=== PATIENT | female | born 1955 | race Caucasian/White ===

== ENCOUNTER 2025-06-11 15:44 | Outpatient (OUT) | payer MEDICARE, MEDICAID, SELFPAY ==
--- OUTSIDE RECORDS SUMMARY | 2025-05-29 11:00 | XMS_ITS | Encounter Summary ---
Author Organization [facility] Address [address] [place] [id number] Care Team Providers Care Skein Yarn Dyer Name Role Phone Malgorzata Sanchez MD Primary Care Provider + [phone] Source Comments In the event this information is protected by the Federal Confidentiality of Alcohol and Drug AbusePatient Records regulations: The Federal rules restrict any use of the information to criminally investigate or prosecute any alcohol or drug abuse patient.[facility] Reason for Referral * Outpatient Procedure (Routine) - New Request Specialty Diagnoses / Procedures Referred By Contac t Referred To Contact [facility] [place] Diagnoses Diffuse large 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 (HCC) Procedures ECHO ECHO TTHRC R-T 2D W/WOM-MODE COMPL SPEC&COLR D Jonel Vaughan MD [address] [place] [address] [place] [address] Phone: tel: fax: [facility] [address] [address] Referral ID Status Reason Start Date Expiration Date Visits Requested Visits Authorized [id number] New Request Auto-Generat ed Referral 05/29/2025 05/29/2026 1 1 Reason for Visit * Reason Comments B cell lymphoma New patient consult Encounter Details Date Type Department Care Team (Latest Contact Info) Description 05/29/2025 11:00 AM EDT Visit (SP) Office Hematology/Oncology [address] [place] [address] Jonel Vaughan MD [address] [facility] [place] [place] [address] Diffuse large 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 (HCC) (Primary Dx) Social History Tobacco Use Types Packs/Day Years Used Date Smoking Tobacco: Former Cigarettes AUDIT-C Answer Date Recorded Frequency of Alcohol Consumption Not on file 05/27/2025 Q2: How many drinks containi ng alcohol do you have on a typical day when you are drinking? Patient does not drink Frequency of Binge Drinking Not on file 08/2024 Area Deprivation Index Answer Date Pedro rded National Score (1-100), lower number is lower ri sk 47 05/29/2025 State Score (1-10), lower number is lower risk 2 05/29/2025 Data from: https://www.neighborhoodatlas.medicine.[place].edu/. Last address used for calculation [address] 05/29/2025 Comments Unknown Sex and Gender Information Value Date Recorded Sex Assigned at Not on file Legal Sex Female 10:47 PM EDT Gender Identity Not on file Sexual Orientation Not on file documented as of this encounter Last Filed Vital Signs Vital Sign Reading Time Taken Comments Blood Pressure 143/88 05/29/2025 10:53 AM EDT Pulse 81 05/29/2025 10:53 AM EDT Temperature 36.6 C (97.8 F) 05/29/2025 10:53 AM EDT Respiratory Rate 16 05/29/2025 10:53 AM EDT Oxygen Saturation 97% 05/29/2025 10:53 AM EDT Inhaled Oxygen Concentration - - Weight 67.1 kg (148 lb) 05/29/2025 10:53 AM EDT Height 152.4 cm (5') 05/29/2025 10:53 AM EDT per patient Body Mass Index 28.9 05/29/2025 10:53 AM EDT documented in this encounter Patient Instructions * Patient Instructions* Jonel Vaughan MD - 05/29/2025 11:10 AM EDT Ordered port placement and 2d echo Chemo teach for [facility] Schedule chemo in 2 weeks F/u in 2 weeks documented in this encounter Progress Notes * Jonel Vaughan MD - 05/29/2025 11:00 AM EDT PATIENT NAME: Monica Clay CLINIC NO.: [id number] ATTENDING PHYSICIAN: Jonel Vaughan MD DATE OF SERVICE: May 29, [address] Malgorzata Sanchez MD ([facility]) [address] [place] [phone] thank you for referring Monica Clay for an opinion regarding Lympoma . CHIEF COMPLAINT: Lymphoma HPI: Monica Clay is a 70 year old year old female with no sig PMH. CT neck (04/22/25)- Multiple left neck cystic nodules versus cystic degeneration of lymph nodes. Findings may be secondary to both benign and malignant etiologies. Clinical correlation advised. PET scan (05/08/25)- Multiple FDG avid lymph nodes involving the level 2 and level 3 regions of the left neck. Per technologist sheet, this area has been biopsied. Correlation with pathology report is suggested. Mild activity involving the tonsillar region right greater than left. Direct visualization is suggested given the lymph node findings. No abnormal activity is seen within the chest, abdomen or pelvis. Normal laryngoscopy on 05/05/25. Excisional biopsy was done on 05/14/25. C/o pain in the neck. No heart problems. Quit smoking. No alcohol. Lives with mother. Current Outpatient Medications Medication Sig amoxicillin-clavulanate potassium (AUGMENTIN) 875-125 mg per tablet take 1 tablet (875 mg) by mouthin the morning and 1 tablet (875 mg) before bedtime. do all this for 10 days. diphenhydrAMINE (BENADRYL) 25 mg capsule Take 25 mg by mouth every 6 hours as needed. famotidine (PEPCID) 20 mg tablet Take 20 mg by mouth. glucosamine canchola 2KCl-chondroit 750-600 mg tab Take 1 tablet by mouth. HYDROcodone-acetaminophen (NORCO) 5-325 mg per tablet Take 1 tablet by mouth every 6 hours as needed. latanoprost (XALATAN) 0.005 % ophthalmic solution INSTILL 1 DROP IN THE RIGHT EYE EVERY EVENING AT BEDTIME discard 42 days after opening No current facility-administered medications for this visit. ALLERGIES Not on File PAST MEDICAL HISTORY Diagnosis Date Neck mass No past surgical history on file. No family history on file. SOCIAL HISTORY[1] REVIEW OF SYSTEMS GENERAL: No weight loss, malaise or fevers. No night sweats. HEENT: Negative for headaches, No changes in hearing or vision, no nose bleeds or other nasal problems. RESPIRATORY: Negative for cough, wheezing and shortness of breath CARDIOVASCULAR: Negative for chest pain, leg swelling and palpitations GI: Negative for abdominal discomfort, blood in stools or black stools and change in bowel habits : Negative for dysuria, frequency and incontinence MUSCULOSKELETAL: Negative for joint pain or swelling, back pain, and muscle pain. SKIN: Negative for lesions, rash, and itching. HEMATOLOGY/LYMPHOLOGY Negative for prolonged bleeding, bruising easily, and swollen nodes. NEURO: Negative for numbness or tingling of hands/feet. No weakness. PHYSICAL EXAMINATION: There were no vitals taken for this visit. There were no vitals taken for this visit. No data found for this vital: Wt General appearance:ECOG PERFORMANCE STATUS: 0- Fully active, able to carry on all pre-disease performance w/o restriction. Patient in NAD. Skin: Skin color, texture, turgor normal. No rashes or lesions. Eyes: Anicteric sclera. Pupils are equally round and reactive to light. Extraocular movements are intact. Breast: No palpable breast masses. No nipple change or discharge. Lymph Nodes: Left cervical lymphadenopathy palpable. Oropharynx: Lips, mucosa, and tongue normal. Back: No pain to percussion. Negative SLR test Lungs clear to auscultation, No wheezing or rhonchi Heart: RRR without murmur, gallop, or rubs. Abdomen soft, non-tender. No masses, organomegaly Extremities: No deformities. No edema Neuro: Gait and speech normal. Reflexes normal and symmetric. Muscular strength intact. Sensation grossly intact. Rectal: Deferred : Deferred LABS: No results found for: GLUC , K , NA , CHLOR , CO2 , CREAT , BUN , ANION , CA , TPROT , ALB , TBILI , ALKPHOS , AST , ALT No results found for: WBC , RBC , HB , HCT , MCV , MCH , MCHC , RDWCV , PLT , MPV , NEUT , ABSNEUT , LYMPHP , ABSLYMPH , MONOP , ABSMONO , EOSINP , ABSEOSIN , BASOP , ABSBASO PATH: FINAL DIAGNOSIS A. Outside slides Left jugular lymph node, level 2, left neck mass levels 2A and 2B, excisional biopsies (submitted parts A through C): -Involvement by HY42-xolubdds aggressive B-cell lymphoma, pending additional testing, see comment. Thank you for sending this case in consultation. Flow cytometry was also performed on the specimen (please see [id number] ), which demonstated an abnormal CD10 positive B-cell population negative forsurface light chain. 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 The lymphoprolifeartive process focally shows a more nodular pattern suggestive of a potential background of follicular lymphoma, although this is limited for characterization. FISH testing has been requested to further characterize these findings and will be reported as an addendum. Addendum Aggressive B-Cell Neoplasm Biomarker Template 5th Edition WHO/2021 ICC Diagnosis: Diffuse large B-cell lymphoma, NOS Biomarker Results: Cell of origin (Raimundo wiping cloth cutter): Germinal center MYC expression (% tumor cells by IHC): less than 40% BCL2 expression (% tumor cells by IHC): Negative Ki67 expression (% tumor cells by IHC): >70% Result Reference Range BCL6 Rearrangement 2% (0-9%) MYC Rearrangement 4% (0-11%) t(8;14)(q24.21;q32.33) IGH::MYC 0% (0-7%) BCL2 Rearrangement 1% (0-5%) IMAGING: ASSESSMENT AND PLAN: Monica Clay is a 70 year old year old female referred to us fro DLBCL, germinal center type. PLAN: 1. Diffuse large 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 (HCC) - ICD9: 202.81, ICD10: C83.31 - Underwent left cervical lymph node excisional biopsy on 05/14/2025. - Final path showed - Involvement by BA39-cvpenfhi aggressive B-cell lymphoma . DLBCL, germinal center type. Ki 67 >70%. Negative for c-MYC, BCL-2 and BCL-6 rearrangement. - PET scan (05/08/25)- Multiple FDG avid lymph nodes involving the level 2 and level 3 regions of the left neck Mild activity involving the tonsillar region right greater than left. Direct visualization is suggested given the lymph node findings. No abnormal activity is seen within the chest, abdomen or pelvis. - I explained to her in detail that she has non bulky stage I diffuse large B- cell lymphoma. - Will start her on R-CHOP chemotherapy x 3 cycles followed by ISRT. -Ordered port placement and 2D echo -Allopurinol prescription sent to the pharmacy - All her questions answered in detail. - F/u in [address] Malgorzata Sanchez MD ([facility]) [address] [place] [phone] thank you for allowing me to participate in [facility], if there are any questions or concerns please do not hesitate to contact me at the number below. I spent a total of 60 minutes on the date of the service which included preparing to see the patient, [id number] patient care, completing clinical documentation, obtaining and/or reviewing separately obtained history, performing a medically appropriate examination, counseling and educating the pat ient/family/caregiver, ordering medications, tests, or procedures, communicating with other HCPs (not separately reported), independently interpreting results (not separately reported), communicatingresults to the patient/family/caregiver, and care coordination (not separately reported). Jonel Vaughan MD. Hematology/Medical Oncology [facility] [phone] CC: [1] Social History Tobacco Use Smoking status: Former Types: Cigarettes documented in this encounter Plan of Treatment Upcoming Encounters Date Type Department Care Team (Latest Contact Info) Description 06/12/2025 8:30 AM EDT Infusion Center Hematology/Oncology [address] [place] [address] [place] [address] 2 week follow up with lab port draw chemotx RCHOP 06/12/2025 9:00 AM EDT Visit (SP) Office Hematology/Oncology [address] [facility] [place] [address] Jonel Vaughan MD [address] [facility] [place] [address] 2 week follow up with lab port draw chemotx [facility] 06/12/2025 9:30 AM EDT Infusion Center Hematology/Oncology [address] [facility] [place] [address] Humberto, Chair [address] [place] [address] 2 week follow up with lab port draw chemotx [facility] 06/12/2025 11:15 AM EDT Education Nutrition Therapy [address] [facility] [place] [address] Aimee Javier, RD [address] [place] [address] Diffuse large b-cell lymphoma, lymph nodes of head, face, and neck ( Scheduled Orders Name Type Priority Associated Diagnoses Orde r Schedule ECHO Cardiology Routine Diffuse large 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 (HCC) 1 Occurrences starting 05/29/2025 until 05/29/2026 IR PORTOCATH PLACEMENT Radiology Routine Diffuse large 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 (HCC) Ordered: 05/29/2025 COMPLETE BLOOD COUNT AND DIFFERENTIAL Lab Routine Diffuse large 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 (HCC) Expected: 06/12/2025 (Approximate), Expires: 09/11/2025 COMPREHENSIVE METABOLIC PANEL Lab Routine Diffuse large 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 (HCC) Expected: 06/12/2025 (Approximate), Expires: 09/11/2025 LACTATE DEHYDROGENASE Lab Routine Diffuse large 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 (HCC) Expected: 06/12/2025 (Approximate), Expires: 09/11/2025 URIC ACID Lab Routine Diffuse large 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 (HCC) Expected: 06/12/2025 (Approximate), Expires: 09/11/2025 HEP ACUTE PANEL/RNA Lab Routine Diffuse large 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 (HCC) Expected: 06/12/2025 (Approximate), Expires: 09/11/2025 documented as of this encounter Visit Diagnoses Diagnosis Diffuse large 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 (HCC)- Primary documented in this encounter Care Teams Skein Yarn Dyer Relationship Specialty Start Date End Date Malgorzata Sanchez MD [address] [place] [address] PCP - General Family Medicine 05/21/25 documented as of this encounter
--- OUTSIDE RECORDS SUMMARY | 2025-06-01 11:00 | XMS_ITS | Encounter Summary ---
Author Organization [facility] Address [address] [place] [address] Care Team Providers Care Theology Teacher Name Role Phone Malgorzata Sanchez MD Primary Care Provider + [phone] Kailyn Hinojosa RN Unavailable [phone] Jonel Vaughan MD Unavailable [phone] Kimmy AdamsC Unavailable [phone] Mariah Lopez CREDIT REVIEW ANALYST.RENDERER Unavailable [phone] Bronwyn Larios CREDIT REVIEW ANALYST.RENDERER Unavailable [phone] Source Comments In the event this information is protected by the Federal Confidentiality of Alcohol and Drug AbusePatient Records regulations: The Federal rules restrict any use of the information to criminally investigate or prosecute any alcohol or drug abuse patient.[facility] Reason for Visit * Reason Comments Opened In Error Encounter Details Date Type Department Care Team (Late st Contact Info) Description 06/01/2025 11:00 AM EDT Nurse Visit Hematology/Oncology [address] [place] [address] [place] [address] Kailyn Hinojosa, RN [address] [place] [address] [place] [address] Diffuse large b-cell lymphoma, lymph nodes of head, face, and neck (HCC) (Primary Dx) Social History Tobacco [...] is lower risk 2 05/29/2025 Data from: https://www.neighborhoodatlas.medicine.[facility].edu/. Last address used for calculation [address] 05/29/2025 Comments Unknown Sex and Gender Information Value Date Recorded Sex Assigned at Not on file Legal Sex Female 10:47 PM EDT Gender Identity Not on file Sexual Orientation Not on file documented as of this encounter Progress Notes * Kailyn Hinojosa RN - 06/03/2025 11:48 AM EDT Opened in error. Kailyn Hinojosa RN documented in this encounter Plan of Treatment Upcoming Encounters Date Type Department Care Team (Latest Contact Info) Description 06/12/2025 8:30 AM EDT Infusion Center Hematology/[place] [address] 2 week follow up with lab port draw chemotx [facility] 06/12/2025 9:00 AM EDT Visit (SP) Office Hematology/[place] [address] Jonel Vaughan MD [facility] [place] [address] 2 week follow up with lab port draw chemotx [facility] 06/12/2025 9:30 AM EDT Infusion Center Hematology/[place]cology [place] [address] Humberto, Chair [address] [place] [address] 2 week follow up with lab port draw chemotx [facility] 06/12/2025 11:15 AM EDT Education Nutrition Therapy [address] [place] [address] Aimee Javier, RD [address] [facility] [place] [address] Diffuse large b-cell lymphoma, lymph nodes of head, face, and neck ( documented as of this encounter Visit Diagnoses Diagnosis Diffuse large b-cell lymphoma, lymph nodes of head, face, and neck (HCC)- Primary documented in this encounter Care Teams Theology Teacher Relationship Specialty Start Date End Date Malgorzata Sanchez MD [address] [place] [phone] PCP - General Family Medicine 05/21/25 Kailyn Hinojosa, RN [address] [place] [address] Specialty Nurse Charge Rn Hematology/Oncology 06/01/25 Jonel Vaughan MD [address] [place] [address] [place] [address] Physician Hematology/Oncology 06/01/25 Kimmy Adams, PA-C [address] [place] [address] [place] [address] Physician Lumber Stacker Operator Hematology/Oncology 06/01/25 Mariah Lopez APRN.RENDERER [address] [place] [address] [place] [address] Nurse Practitioner Hematology/Oncology 06/01/25 Bronwyn Larios APRN.RENDERER [address] [place] [address] [place] [address] Nurse Practitioner Hematology/Oncology 06/01/25 documented as of this encounter
--- OUTSIDE RECORDS SUMMARY | 2025-06-11 15:51 | XMS_ITS | Encounter Summary ---
Author Organization [facility] Address [address] [place] [address] Care Team Providers Care Noc Technician Name Role Phone Malgorzata Sanchez MD Primary Care Provider Ava Dow NP Unavailable [phone] Malgorzata Sanchez MD Unavailable Ava Dow NP Unavailable Encounter Details Date Type Department Care Team (Late st Contact Info) Description 11/16/2023 Abstract [facility] [address] [place] [phone] Ava Dow NP [address] [place] [address] Social History Tobacco Use Types Packs/Day Years Used Date Smoking Tobacco: Former Cigarettes 2.5 35.2 0 11/25/1969 - 01/25/2005 Smokeless Tobacco: Never Comments:Forced to quit maikel use of health problems Alcohol Use Standard Drinks/Week Comments Not Currently 0 (1 standard drink = 0.6 oz pur e alcohol) Recoving alcoholic Humiliation, Afraid, Rape, and Kick questionnair e Answer Date Recorded Within the last year, have y ou been afraid of your partner or ex-partner? No 05/21/2023 Within the last year, have y ou been humiliated or emotionally abused in other ways by your partner or ex-partner? No Within the last year, have y ou been kicked, hit, slapped, or otherwise physically hurt by your partner or ex-partner? No 05/21/2023 Within the last year, have y ou been raped or forced to have any kind of sexual activity by your partner or ex-partner? No 05/21/2023 Social Connection and Isolation Panel Answer Date Recorded In a typical week, how many times do you talk on the phone with family, friends, or neighbors? Patient declined 05/21/2023 How often do you get togethe r with friends or relatives? Once a week 05/21/2023 How often do you attend muslim or tenriism serv ices? Never 05/21/2023 Do you belong to any clubs o r organizations such as muslim groups, unions, fraternal or athletic groups, or school groups? No 05/21/2023 How often do you attend meet ings of the clubs or organizations you belong to? Never 05/21/2023 Are you , , di vorced, , never , or living with a partner? Never 05/21/2023 AUDIT-C Answer Date Recorded Q1: How often do you have a drink containing alcohol? Never 05/21/2023 Q2: How many drinks containi ng alcohol do you have on a typical day when you are drinking? Patient does not drink Q3: How often do you have si x or more drinks on one occasion? Never 05/21/2023 Overall Financial Resource Strain (CARDIA) Answe r Date Recorded How hard is it for you to pa y for the very basics like food, housing, medical care, and heating? Hard 05/21/2023 PHQ-2 Answer Date Recorded Patient Health Questionnaire-2 Score 2 11/15/2023 [facility] - Occupational Stress Questionnaire Answer Date Recorded Do you feel stress - tense, restless, nervous, or anxious, or unable to sleep at night because your mind is troubled all the time - these days? Rather much 05/21/2023 Exercise Vital Sign Answer Date Recorde d On average, how many days pe r week do you engage in moderate to strenuous exercise (like a brisk walk)? 7 days 05/21/2023 On average, how many minutes do you engage in exercise at this level? 70 min 05/21/2023 Hunger Vital Sign Answer Date Recorded Within the past 12 months, y ou worried that your food would run out before you got the money to buy more. Often true Within the past 12 months, t he food you bought just didn't last and you didn't have money to get more. Sometimes true PRAPARE - Transportation Answer Date Re corded In the past 12 months, has l ack of transportation kept you from medical appointments or from getting medications? Yes 04/28 In the past 12 months, has l ack of transportation kept you from meetings, work, or from getting things needed for daily living? No 05/21/2023 Housing Stability Vital Sign Answer Mata e Recorded In the last 12 months, was t here a time when you were not able to pay the mortgage or rent on time? Patient refused 05/21/20 23 In the last 12 months, how many places have you lived? 1 05/21/2023 In the last 12 months, was t here a time when you did not have a steady place to sleep or slept in a prison (including now)? No 05/21/2023 Comments Unknown Sex and Gender Information Value Date Recorded Sex Assigned at Female 05/21/2023 6:07 PM EDT Legal Sex Female 4:08 PM EDT Gender Identity Female 05/21/2023 6:07 PM EDT Sexual Orientation Not on file documented as of this encounter Plan of Treatment Upcoming Encounters Date Type Department Care Team (Late st Contact Info) Description 06/22/2025 1:45 PM EDT Office Visit [facility] [address] [place] [address] Kirill Montes De Oca, DO [address] [place] [address] documented as of this encounter Visit Diagnoses Not on filedocumented in this encounter Care Teams Noc Technician Relationship Specialty Start Date End Date Malgorzata Sanchez MD [address] [place] [address] PCP - General Family Medicine 05/21/23 Malgorzata Sanchez MD [address] [place] [address] PCP - Jerome OJNES 08/27/23 11/24/24 Ava Dow NP [address] [place] [address] PCP - Jerome JONES 11/25/24 Ava Dow NP [address] [place], [place] [phone] Nurse Practitioner Family Medicine 05/21/23 documented as of this encounter
--- OUTSIDE RECORDS SUMMARY | 2025-06-11 15:51 | XMS_ITS | Encounter Summary ---
Author Organization [facility] Address [address] [place] [id number] Care Team Providers Care Environmental Lead Name Role Phone Malgorzata Sanchez MD Primary Care Provider + [phone] Source Comments In the event this information is protected by the Federal Confidentiality of Alcohol and Drug AbusePatient Records regulations: The Federal rules restrict any use of the information to criminally investigate or prosecute any alcohol or drug abuse patient.[facility] Encounter Details Date Type Department Care Team (Late st Contact Info) Description 05/29/2025 Orders Only Hematology/Oncology [address] [place] [address] [place] [address] Jonel Vaughan MD [address] [place] [address] Social History Tobacco Use Types Packs/Day Years [...] is lower risk 2 05/29/2025 Data from: https://www.neighborhoodatlas.medicine.[facility].edu/. Last address used for calculation [address] [...] 06/12/2025 8:30 AM EDT Infusion Center Hematology/Oncology [address] [place] [address] 2 week follow up with lab port draw chemotx [facility] 06/12/2025 9:00 AM EDT Visit (SP) Office Hematology/Oncology [address] [facility] [place] [address] Jonel Vaughan MD [address] [place] [address] 2 week follow up with lab port draw chemotx [facility] 06/12/2025 9:30 AM EDT [facility] Center Hematology/Oncology [address] [place] [address] Liguori, Chair [address] [place] [address] 2 week follow up with lab port draw chemotx [facility] 06/12/2025 11:15 AM EDT Education Nutrition Therapy [address] [place] [address] Aimee Javier, RD [address] [address] Diffuse large b-cell lymphoma, lymph nodes of head, face, and neck ( documented as of this encounter Visit Diagnoses Not on filedocumented in this encounter Care Teams Environmental Lead Relationship Specialty Start Date End Date Malgorzata Sanchez MD [address] [place] [id number] PCP - General Family Medicine 05/21/25 documented as of this encounter
--- OUTSIDE RECORDS SUMMARY | 2025-06-11 15:51 | XMS_ITS | Encounter Summary ---
Author Organization [facility] Address [address] [place], [place] [id number] Care Team Providers Care Legal Investigator Name Role Phone Malgorzata Sanchez MD Primary Care Provider + [phone] Source Comments In the event this information is protected by the Federal Confidentiality of Alcohol and Drug AbusePatient Records regulations: The Federal rules restrict any use of the information to criminally investigate or prosecute any alcohol or drug abuse patient.[facility] Reason for Visit * Reason Comments Care Coordination Medication Question Encounter Details Date Type Department Care Team (Late st Contact Info) Description 05/29/2025 Telephone Hematology/Oncology [address] [place] [address] Iliana Maynard, FREDY [address] [place] [address] [place] [address] Care Coordination (Medication Question) Social History Tobacco Use Types Packs/Day Years [...] is lower risk 2 05/29/2025 Data from: https://www.neighborhoodatlas.medicine.[facility]/. Last address used for calculation [address] 05/29/2025 Comments Unknown Sex and Gender Information Value Date Recorded Sex Assigned at Not on file Legal Sex Female 10:47 PM EDT Gender Identity Not on file Sexual Orientation Not on file documented as of this encounter Miscellaneous Notes * Telephone Encounter - Iliana Maynard RN - 05/29/2025 4:22 PM EDT Clarified w/ Dr Vaughan - pt can start next Sunday, 06/05. Pt notified of the above and verbalizes understanding. Iliana Maynard RN * Telephone Encounter - Jonel Vaughan MD - 05/29/2025 4:19 PM EDT I told her to start from next week. Thank you * Telephone Encounter - Iliana Maynard RN - 05/29/2025 4:07 PM EDT Pt to start [facility] on 06/12. When should she begin her Allopurinol? Iliana Maynard RN documented in this encounter Plan of Treatment Upcoming Encounters Date Type Department Care Team (Latest Contact Info) Description 06/12/2025 8:30 AM EDT Infusion Center Hematology/Oncology [address] [place], [place] [address] [address] 2 week follow up with lab port draw chemotx [facility] 06/12/2025 9:00 AM EDT Visit (SP) Office Hematology/Oncology [facility] [place] [address] Jonel Vaughan MD [address] [place] [address] 2 week follow up with lab port draw chemotx [facility] 06/12/2025 9:30 AM EDT Infusion Center Hematology/Oncology [address] [place] [address] Humberto, Chair [address] [place] [address] [place] [address] 2 week follow up with lab port draw chemotx [facility] 06/12/2025 11:15 AM EDT Education Nutrition Therapy [address] [place] [address] [place] [address] Aimee Javier, DAVID [address] [facility] [place] [address] Diffuse large b-cell lymphoma, lymph nodes of head, face, and neck ( documented as of this encounter Visit Diagnoses Not on filedocumented in this encounter Care Teams Legal Investigator Relationship Specialty Start Date End Date Malgorzata Sanchez MD [address] [place] [phone] PCP - General Family Medicine 05/21/25 documented as of this encounter
--- OUTSIDE RECORDS SUMMARY | 2025-06-11 15:51 | XMS_ITS | Clinical Summary ---
Author Organization [facility] Address [address] [place] [address] Care Team Providers Care Mop Machine Operator Name Role Phone Malgorzata Sanchez MD Primary Care Provider [phone] Kailyn Hinojosa RN Unavailable [phone] Jonel Vaughan MD Unavailable [phone] Kimmy Adams PA-C Unavailable [phone] Mariah Lopez COVERED BUTTON MAKER.SOCIAL SERVICES ANALYST Unavailable [phone] Bronwyn Larios COVERED BUTTON MAKER.SOCIAL SERVICES ANALYST Unavailable [phone] Allergies No known active allergies Medications diphenhydrAMIN E (BENADRYL) 25 mg capsule Take 25 mg by mouth every 6 hours as needed. Active famotidine (PEPCID) 20 mg tabletIndicati ons:heartburn Take 20 mg by mouth once daily as needed. Active glucosamine canchola 2KCl-chondroit 750-600 mg tab Take 1 tablet by mouth. 5 Active latanoprost (XALATAN) 0.005 % ophthalmic solution INSTILL 1 DROP IN THE RIGHT EYE EVERY EVENING AT BEDTIME discard 42 days after opening 5 Active calcium carbonate/luis antonio min D2 (CALCIUM + VITAMIN D ORAL) Take 1 dose by mouth once daily as needed. Active allopurinol (ZYLOPRIM) 300 mg tablet Take 1 tablet by mouth once daily. 30 tablet 5 06/28/20 25 Active prochlorperazi ne (COMPAZINE) 10 mg tablet Take 1 tablet by mouth every 6 hours as needed. 100 tablet 2 06/01/2025 12:01 PM EDT Active ondansetron (ZOFRAN) 8 mg tablet Take 1 tablet by mouth every 8 hours as needed for nausea/vomitin g. 90 tablet 2 06/01/2025 12:01 PM EDT 5 Active acyclovir (ZOVIRAX) 400 mg tabletIndicati ons:Diffuse large b-cell lymphoma, lymph nodes of head, face, and neck (HCC) Take 1 tablet by mouth two times a day. Take throughout treatment and for 6 months after completion. 60 tablet 11 06/01/2025 12:01 PM EDT 5 Active predniSONE (DELTASONE) 50 mgIndications: Diffuse large b-cell lymphoma, lymph nodes of head, face, and neck (HCC) Take 2 tablets by mouth daily with breakfast. Take for 5 days starting on the first day of each cycle (days 1-5). 10 tablet 5 06/01/2025 12:01 PM EDT Active magnesium, aluminum hydroxide (MYLANTA ORAL) Take 1 capsule by mouth once daily as needed (heart burn). Active vitamin B complex (B COMPLEX 1 ORAL) Take 1 capsule by mouth once daily. Active amoxicillin-cl avulanate potassium (AUGMENTIN) 875-125 mg per tablet take 1 tablet (875 mg) by mouth in the morning and 1 tablet (875 mg) before bedtime. do all this for 10 days. 5 05/29/20 25 Discontinu ed(Course of therapy completed) HYDROcodone-ac etaminophen (NORCO) 5-325 mg per tablet Take 1 tablet by mouth every 6 hours as needed. 5 05/29/20 25 Discontinu ed(Course of therapy completed) Active Problems Problem Noted Date Diagnosed Date Diffuse large b-cell lymphom a, lymph nodes of head, face, and neck 05/29/2025 Encounters Date Type Department Care Team Description 06/11/2025 Patient Msg Hematology/Oncolog y [address] [place] [address] Provider, Ccf Financial Navigator 06/11/2025 Telephone Hematology/Oncolog y [address] [facility] [place] [address] Kailyn Hinojosa RN Care Coordination (Clinical update) 06/08/2025 Telephone Hematology/Oncolog y [address] [place] [address] Ana Cristina Stevens RN Orders (Echo & Lab question) 06/05/2025 Telephone Hematology/Oncolog y [address] [place] [address] Kailyn Hinojosa RN Care Coordination (echo) 06/05/2025 Telephone Hematology/Oncolog y [address] [place] [address] Kailyn Hinojosa RN Care Coordination (Port question) 06/03/2025 Telephone Hematology/Oncolog y [address] [place] [address] Kailyn Hinojosa RN Care Coordination (question) 06/01/2025 11:00 AM EDT Nurse Visit Hematology/Oncolog y [address] [place] [address] Kailyn Hinojosa RN Diffuse large b-cell lymphoma, lymph nodes of head, face, and neck (HCC) (Primary Dx) 06/01/2025 Telephone Hematology/Oncolog y [address] [facility] [address] Kailyn Hinojosa RN Care Coordination (appointments); Future Appointment 06/01/2025 Education Hematology/Oncolog y [address] [facility] [address] Kailyn Hinojosa, FREDY First Time Treatment Education 06/01/2025 Telephone Hematology/Oncolog y [address] [place] [address] Kailyn Hinojosa RN Care Coordination (Treatment prep) 06/01/2025 Orders Only Hematology/Oncolog y [address] [place] [address] Jonel Vaughan MD 05/30/2025 Travel 05/29/2025 11:00 AM EDT Visit (SP) Office Hematology/Oncolog y [address] [place] [address] Jonel Vaughan MD Diffuse large 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 (HCC) (Primary Dx) 05/29/2025 Telephone Hematology/Oncolog y [address] [facility] [address] Iliana Maynard, RN Care Coordination (Medication Question) 05/29/2025 Orders Only Hematology/Oncolog y [address] [facility] [address] Jonel Vaughan MD 05/29/2025 Telephone Hematology/Oncolog y [address] [place] [address] Jonel Vaughan MD 05/29/2025 Telephone Cancer Appts [address] [place] [address] Jonel Vaughan MD Future Appointment 05/29/2025 Travel 05/27/2025 Abstract Hematology/Oncolog y [address] [facility] [address] [place], [place] [id number] Jonel Vaughan MD 05/14/2025 Lab Requisition [facility] [address] [place] [address] Kyaw Lara MD Person encountering health services to consult on behalf of another person 05/08/2025 Lab Requisition [facility] [address] [place] [address] Kirill Montes De Oca, DO Person encountering health services to consult on behalf of another person from Last 3 Months Immunizations Immunization Administration Dates Next Due COVID-19 vaccine, unspecified formulation 2024 influenza (HD-IIV3) vaccine, age 65+ yr, high dose, trivalent, PF (FLUZONE HIGH-DOSE) 09/29/2024 influenza (HD-IIV4) vaccine, age 65+ yr, high dose, quadrivalent, PF (FLUZONE HIGH-DOSE) 07/14/2023 influenza (IIV4) vaccine, ag e 6 mo - 64 yr, quadrivalent, PF (AFLURIA, FLUARIX, FLULAVAL, FLUZONE) 07/29/2022,09/08/2021 pneumococcal conjugate (PCV1 3) vaccine, 13 valent (PREVNAR 13) 10/15/2019 pneumococcal polysaccharide (PPV23) vaccine, 23 valent (PNEUMOVAX 23) 10/11/2021 zoster (ZVL) vaccine, live (ZOSTAVAX) 09/13/2016 Social History Tobacco Use Types Packs/Day Years Used Date Smoking Tobacco: Former Cigarettes Tobacco Cessation:Counseling Given: Not Answered AUDIT-C Answer Date Recorded Frequency of Alcohol [...] is lower risk 2 05/29/2025 Data from: https://www.neighborhoodatlas.medicine.[facility].edu/. Last address used for calculation [address] 05/29/2025 Comments Unknown Sex and Gender Information Value Date Recorded Sex Assigned at Not on file Legal Sex Female 10:47 PM EDT Gender Identity Not on file Sexual Orientation Not on file Last Filed Vital Signs Vital Sign Reading [...] Mass Index 28.9 05/29/2025 10:53 AM EDT Plan of Treatment Upcoming Encounters Date Type Department Care Team (Latest Contact Info) Description 06/12/2025 8:30 AM EDT Infusion Center Hematology/Oncology [address] [place] [address] [place] [address] 2 week [facility] lab [facility] 06/12/2025 9:00 AM EDT Visit (SP) Office Hematology/Oncology [address] [place] [address] Jonel Vaughan MD [address] [place] [address] 2 week follow up with lab port draw chemotx [facility] 06/12/2025 9:30 AM EDT Infusion Center Hematology/Oncology [address] [facility] [place] [address] Humberto, Chair 4 [address] [place] [address] 2 week follow up with lab port draw chemotx [facility] 06/12/2025 11:15 AM EDT Education Nutrition Therapy [address] [place] [address] Aimee Javier, BELINDA [address] [place] [place] [address] Diffuse large b-cell lymphoma, lymph nodes of head, face, and neck ( Health Maintenance Due Date Last Done Comments Anxiety Screening 1972 Depression Screening 1972 Hepatitis C Screening 1972 DTaP,Tdap,Td Vaccine (1 - Tdap) 1973 CT Colonography 1999 Colonoscopy 1999 Fecal Occult Blood 1999 Sigmoidoscopy 1999 Shingrix Vaccine (2 of 3) 11/08/2016 09/13/2016 Cologuard (FIT-DNA) 10/28/2022 10/29/2019 Colorectal Cancer Screening 10/28/2022 Advance Directive Discussion 08/27/2024 Covid-19 Vaccine (8 - 2024-2 6 season) 2025 09/12/2024, 07/14/2023, 07/29/2022, Additional history exists Influenza Vaccine (#1) 2025 , 07/14/2023, 07/29/2022, Additional history exists Mammogram Screening 09/05/2025 09/05/2024, 09/05/2024, 06/07/2023, Additional history exists Diabetes Screening 05/05/2028 05/05/2025, 0 04/21/2025, 10/12/2022, Additional history exists RSV Vaccine (1 - 1-dose 75+ series) 2029 Lipid Screening 04/21/2030 04/21/2025, 02/08/2021, 10/20/2019 Pneumococcal Vaccine: 50+ Completed 10/11/2021, Bone Density Screening Completed 09/05/2024, 2021 Procedures Procedure Name Priority Date/Time Associated Diagnosis Comments EXTERNAL PROCEDURE 06/05/2025 11 :43 AM EDT EXTERNAL LAB 05/22/2025 12:04 PM EDT EXTERNAL PROCEDURE 05/22/2025 12 :04 PM EDT EXTERNAL IMAGING 05/22/2025 12:0 4 PM EDT EXTERNAL LAB 05/22/2025 12:04 PM EDT EXTERNAL LAB 05/22/2025 12:04 PM EDT FISH FOR AGGRESSIVE B-CELL LYMPHOMA Routine 05/14/2025 9:19 AM EDT Person encountering health services to consult on behalf of another person SURGICAL PATHOLOGY REFERENCE LAB CONSULT Routine 05/14/2025 9:19 AM EDT Person encountering health services to consult on behalf of another person FLOW CYTOMETRY FOR LEUKEMIA/LYMPHOMA (FCLL) REFLEX Routine 05/08/2025 12:00 AM EDT Person encountering health services to consult on behalf of another person SURGICAL PATHOLOGY Routine 05/08/2025 12 :00 AM EDT Person encountering health services to consult on behalf of another person CT OUTSIDE CD DICOM IMPORT 05/08/2025 CT OUTSIDE CD DICOM IMPORT 04/30/2025 CT OUTSIDE CD DICOM IMPORT 04/22/2025 from Last 3 Months Results * EXTERNAL PROCEDURE (06/05/2025 11:43 AM EDT) us External Provider PA-C PROCEDURE Final Res ult * EXTERNAL LAB (05/22/2025 12:04 PM EDT) Only the most recent of3 resultswithin the time period is included. us External Provider PA-C LABORATORY Final Res ult * EXTERNAL PROCEDURE (05/22/2025 12:04 PM EDT) us External Provider PA-C PROCEDURE Final Res ult * EXTERNAL IMAGING (05/22/2025 12:04 PM EDT) Anatomical Region Laterality Modality Other us External Provider PA-C RADIOLOGY Final Res ult * SURGICAL PATHOLOGY REFERENCE LAB CONSULT (05/14/2025 9:19 AM EDT) Case Report Surgical Pathology Report Case: [id number] Authorizing Provider: Kyaw Lara MD Collected: 05/14/2025 09:19 AM Ordering Location: [facility] Received: 05/14/2025 09:17 AM [facility] Pathologist: Tila Oconnor MD, PhD Specimen: Block(s) and/or Slide(s), 48 SLIDES / 3 BLOCKS [id number];A2,B1FS,C1 05/21/2025 4:26 PM EDT [facility] FINAL DIAGNOSIS A. Outside slides Left jugular lymph node, level 2, left neck mass levels 2A and 2B, excisional biopsies (submitted parts A through C): -Involvement by [id number] aggressive B-cell lymphoma, pending additional testing, see comment. [facility] May 20, 2025 05/21/2025 4:26 PM EDT [facility] at 1153 EDT Diagnosis Comment Thank you for sending this case in consultation. Flow cytometry was also performed on the specimen (please see [id number] ), which demonstated an abnormal CD10 positive B-cell population negative for surface light chain. 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 The lymphoprolifeartive process focally shows a more nodular pattern suggestive of a potential background of follicular lymphoma, although this is limited for characterization. FISH testing has been requested to further characterize these findings and will be reported as an addendum. Please contact the Hematopathology Consult Service at [phone] for any questions or if additional follow-up information becomes available. 05/21/2025 4:26 PM EDT [facility] Microscopic Description Histologic sections demonstrate multiple fragments of soft tissue involved with incorporated lymph node and an atypical lymphoid proliferation. The atypical lymphoid cells are partially limited by fixation artifact for morphologic evaluation but include a mixture of larger more atypical forms with irregular nuclear contours and increased eosinophilic cytoplasm as well as small to medium lymphoid cells. Focal areas show a suggestion of a nodular pattern, or other areas of proliferation appear more diffuse. The background soft tissue is partially involved and shows extensive fibrosis. Submitted stains are reviewed. The atypical proliferation is negative for cytokeratin AE1/AE3, HMB45, Mart1/Melan-A and S100. Additional stains are performed to [facility] to further clarify the morphologic findings. A subset of stains are performed on multiple blocks to help further clarify the morphologic findings given the variation in pattern and confounding artifact. CD3 and CD5 show numerous interspersed T cells. CD20 highlights the atypical larger lymphoid forms. These larger forms show increased Ki-67 proliferation rate, at least 70% with some areas greater. They coexpress Bcl6, CD10, CD21, CD23, MEF2B, BOB1, Pax5. Pax5 shows some variation in nuclear size of the B-cells with interspersed smaller forms as well as the larger more atypical forms without definite pattern. Background areas of residual lymph node are positive for dendritic meshworks by CD21. Bcl6 shows a partially nodular pattern. CD30 shows scattered positivity, ~5%. The atypical cells are negative for cyclin D1, Bcl2 (124 and EP36 clones), ALK1, MUM1, cMyc (<40%) and by CISH for ANGELICA. An ultrasensitive CISH stain for kappa and lambda shows polytypic plasma cells, focal polytypic residual B-cell nodules and focal areas suggestive of lambda predominance. The majority of atypical cells do not show discernible light chain expression. p53 is variable, suggestive of a wild-type pattern. 05/21/2025 4:26 PM EDT [facility] Clinical History CONSULT REQUSTED 05/21/2025 4:26 PM EDT [facility] Performing Lab Diagnostic interpretation performed at: [facility], [address] [place] [address], [place] [address] CLIA# [id number] Closing Agent: Tommie Bob MD 05/21/2025 4:26 PM EDT [facility] Addendum Aggressive B-Cell Neoplasm Biomarker Template 5th Edition ICC Diagnosis: Diffuse large B-cell lymphoma, NOS Biomarker Results: Cell of origin (Raimundo flight operations specialist): Germinal center MYC expression (% tumor cells by IHC): less than 40% BCL2 expression (% tumor cells by IHC): Negative Ki67 expression (% tumor cells by IHC): >70% Result Reference Range BCL6 Rearrangement 2% (0-9%) MYC Rearrangement 4% (0-11%) t(8;14)(q24.21;q32.33 ) IGH::MYC 0% (0-7%) BCL2 Rearrangement 1% (0-5%) 05/21/2025 4:26 PM EDT [facility] Addendum electronically signed by Tila Oconnor MD, PhD on 05/21/2025 at 1626 EDT Disclaimer Laboratory Developed Test (LDT) Disclaimer: Performance characteristics of immunohistochemical, immunofluorescent, and chromogenic in-situ hybridization tests have been determined by the performing laboratory within the [facility] Department of Pathology and Laboratory Medicine ([facility], [facility], [facility], [facility], [facility], [facility], or [facility]) in a manner consistent with CLIA requirements. One or more of these tests may not have been cleared or approved by the FDA. The [facility] Department of Pathology and Laboratory Medicine is regulated under CLIA as qualified to perform high-complexity testing. These tests are used for clinical purposes. These should not be regarded as investigational or for research. Positive and negative controls stain appropriately. 05/21/2025 4:26 PM EDT [facility] Blocks or Slides PARAFFIN EMBEDDED TISSUE BLOCK SPECIMEN / Unknown 05/14/2025 9:19 AM EDT 05/14/2025 9:17 AM EDT Kyaw Lara MD SURGICAL PATHOLOGY Edited Result - Final [facility] [address] [facility] [address] [address], [place] * FISH FOR AGGRESSIVE B-CELL LYMPHOMA (05/14/2025 9:19 AM EDT) FISH for Aggressive B-cell Lymphoma FISH for Aggressive B-cell Lymphoma Tissue Laboratory Accession Number: [id number] Case: [id number] Block/Part ID: [id number] ([id number]; C1) Sample Type: FFPET Sample Description: LEFT NECK MASS, LEVEL 2A, EXCISIONAL BIOPSY Received Date: 2025-05-19 13:14:40 Number of nuclei scored: 200 per test RESULT: Result Reference Range BCL6 Rearrangement 2% (0-9%) MYC Rearrangement 4% (0-11%) t(8;14)(q24.21;q32 .33) IGH::MYC 0% (0-7%) BCL2 Rearrangement 1% (0-5%) INTERPRETATION: NEGATIVE for rearrangements involving the MYC, BCL2 and BCL6 genes. Chromosome analysis may be helpful in further evaluation, if clinically indicated. Clinical and pathologic correlation is recommended. There is an 11% gain (3 copies) of the MYC (8q24) gene region. There is a 14% gain (3 copies) of the IGH (14q32) gene region. There is a 16% gain (3-4 copies) of the BCL2 (18q21) gene region. Nomenclature: nuc claudine(BCL6x2)[161/20 0],(MYCx2,IGHx3)[2 7/200],(MYCx3)[2 1200],(BCL2x3~4)[ 31/200] METHODOLOGY: Fluorescence in situ hybridization analysis was performed using the following probes ([employer], [place], [place]): LSI MYC dual color, break-apart rearrangement probes; [employer] IGH/MYC/CEP8 tricolor, dual fusion probes; [employer] BCL2 dual color, break-apart rearrangement probes; and LSI BCL6 dual color, break-apart rearrangement probes. DISCLAIMER: This test was developed and its performance characteristics determined by [facility]'s Pathology and Laboratory Medicine Department. It has not been cleared or approved by the FDA. [facility]'s Pathology and Laboratory Medicine Department is regulated under CLIA as qualified to perform high-complexity testing. This test is used for clinical purposes. It should not be regarded as investigational or for research. Test performed at [facility], [facility] [place] [address]. CLIA Number: [id number] Interpretation performed by Aimee Cazares MD, PhD 05/21/2025 3:57 PM EDT [facility] Blocks or Slides PARAFFIN EMBEDDED TISSUE BLOCK SPECIMEN / Unknown 05/14/2025 9:19 AM EDT 05/18/2025 7:34 PM EDT Kyaw Lara MD LABORATORY Final Result [facility] [place] [address], * FLOW CYTOMETRY FOR LEUKEMIA/LYMPHOMA (FCLL) REFLEX (05/08/2025 12:00 AM EDT) Interpretation The findings demonstrate a subset of B cells that express CD10 and are negative for surface light chain. The findings are suspicious for a B-cell lymphoma, but correlation with the clinical and histopathologic findings is suggested for further classification. 05/14/2025 4:19 PM EDT [facility] at 1619 EDT Results Specimen type: Left neck lymph node. Viability: 85% Lymphocyte gate: 74% of total events A limited flow cytometric analysis was performed on the left neck lymph node biopsy due to low cell yield. Antibodies to CD5, CD10, CD19, CD20, CD23, CD45, CD123, CD200, and kappa and lambda light immunoglobulin light chains were used. This shows that 74% of total events have the CD45 and side scatter properties of lymphocytes. In the lymphocyte gate, the lymphocytes are composed of presumed T cells (65%) and B cells (32%). A subset of the B cells expresses CD10, CD19, CD20, CD23, and CD45. This population is negative for CD5, CD123, CD200, and surface immunoglobulin light chain. MMN/MT 05/11/25 05/14/2025 4:19 PM EDT [facility] Gross Description A. Lymph Node, Biopsy RECEIVED 1 PIECE TISSUE MEASURING 0.2 CM BY 0.2 CM BY 0.2 CM 05/14/2025 4:19 PM EDT [facility] Diagnosis Comment This test was developed and its performance characteristics determined by [facility] [place] ([facility]). It has not been cleared or approved by the FDA. [facility] is regulated under CLIA as qualified to perform high-complexity testing. This test is used for clinical purposes. It should not be regarded as investigational or for research. 05/14/2025 4:19 PM EDT [facility] Performing Lab Diagnostic interpretation performed at [place] [address] CLIA# [id number] Closing Agent: Tommie Bbo M.D. 05/14/2025 4:19 PM EDT [facility] Tissue LYMPH NODE BIOPSY SPECIMEN / Unknown 05/08/2025 05/08/2025 11:27 PM EDT us Kirill Montes De Oca DO SURGICAL PATHOLOGY Final Re sult [facility] [address] [place] [address], * SURGICAL PATHOLOGY (05/08/2025 12:00 AM EDT) Case Report Surgical Pathology Report Case: [id number] Authorizing Provider: Kirill Montes De Oca DO Collected: 05/08/2025 12:00 AM Ordering Location: [facility] Received: 05/08/2025 10:50 PM [facility] Pathologist: Madison Camarillo MD Specimen: Lymph Node, Biopsy, lt neck node ([id number]) 05/15/2025 9:56 AM EDT [facility] FINAL DIAGNOSIS This specimen was submitted for flow cytometry. Please see [id number] for the flow cytometry findings. Please refer to [id number] for the final diagnosis for the surgical pathology specimen. 05/15/2025 9:56 AM EDT [facility] at 0956 EDT Gross Description A. Lymph Node, Biopsy Received in RPMI for lymphoma protocol labeled lymph node, biopsy is a specimen consisting of 5 pieces of fibroadipose/lymph oid tissue measuring 1.7 x 1.4 x 0.2 cm in aggregate. The smallest fragment is submitted in RPMI for flow cytometry and remaining of the tissue is transferred to formalin for permanents in A1. Gross examination performed at [facility], [address] [place] [address] CLIA # [id number] 05/08/25 11:27 PM 05/15/2025 9:56 AM EDT [facility] Performing Lab Diagnostic interpretation performed at: [facility], [address] [place] [address] CLIA# [id number] Closing Agent: Tommie Bob MD 05/15/2025 9:56 AM EDT [facility] Disclaimer Laboratory Developed Test (LDT) Disclaimer: Performance characteristics of immunohistochemica l, immunofluorescent, and chromogenic in-situ hybridization tests have been determined by the performing laboratory within the [facility] Department of Pathology and Laboratory Medicine ([facility], [facility], [facility], [facility], [facility], [facility], or [facility]) in a manner consistent with CLIA requirements. One or more of these tests may not have been cleared or approved by the FDA. The [facility] Department of Pathology and Laboratory Medicine is regulated under CLIA as qualified to perform high-complexity testing. These tests are used for clinical purposes. These should not be regarded as investigational or for research. Positive and negative controls stain appropriately. 05/15/2025 9:56 AM EDT [facility] Tissue LYMPH NODE BIOPSY SPECIMEN / Unknown 05/08/2025 05/08/2025 10:50 PM EDT us Kirill Montes De Oca DO SURGICAL PATHOLOGY Final Re sult [facility] [address] [facility] [address] [place] [address], [place] * CT-PET tumor subq tx strat sb-mt IMPORT (05/08/2025) Anatomical Region Laterality Modality Other 05/08/2025 Narrative 05/27/2025 1:37 AM EDT Images were obtained outside of [facility] Procedure Note Provider, [facility] [place] - 05/27/2025 Images were obtained outside of [facility] Cc Provider RADIOLOGY Final Result * CT-CT LUNG SCREENING LOW DOSE IMPORT (04/30/2025) Anatomical Region Laterality Modality Other 04/30/2025 Narrative 05/27/2025 1:36 AM EDT Images were obtained outside of [facility] Procedure Note Provider, [facility] [place] - 05/27/2025 Images were obtained outside of [facility] Cc Provider RADIOLOGY Final Result * [place]-CT SOFT TISSUE NECK W IV CONTRAST IMPORT (04/22/2025) Anatomical Region Laterality Modality Other 04/22/2025 Narrative 05/27/2025 1:35 AM EDT Images were obtained outside of [facility] Procedure Note Provider, [facility] [place] - 05/27/2025 Images were obtained outside of [facility] Ccf Provider RADIOLOGY Final Result from Last 3 Months Insurance [employer] MEDIC[employer]ANT[place] Care Teams Mop Machine Operator Relationship Specialty Start Date End Date Malgorzata Sanchez MD [address] [place] [id number] PCP - General Family Medicine 05/21/25 Kailyn Hinojosa, RN [address] [place] [place] [address] Specialty Special Forces Warrant Officer Hematology/Oncology 06/01/25 Jonel Vaughan MD [address] [place] [address] Physician Hematology/Oncology 06/01/25 Kimmy Adams, PA-C [address] [place] [address] Physician Assembly Stock Supervisor Hematology/Oncology 06/01/25 Mariah Lopez APRN.SOCIAL SERVICES ANALYST [address] [place] [address] Nurse Practitioner Hematology/Oncology 06/01/25 Bronwyn Larios APRN.[facility] [address] [place] [address] [place] [address] Nurse Practitioner Hematology/Oncology 06/01/25
--- OUTSIDE RECORDS SUMMARY | 2025-06-11 15:51 | XMS_ITS | Encounter Summary ---
Author Organization [facility] Address [address] [place] [address] Care Team Providers Care Cane Loader Name Role Phone Malgorzata Sanchez MD Primary Care Provider + [phone] Kailyn Hinojosa RN Unavailable [phone] Jonel Vaughan MD Unavailable + [phone] Kimmy Adams PA-C Unavailable [phone] Mariah Lopez SECURITY SALES MANAGER.DE[employer] STUDENTS Unavailable +[phone] Bronwyn Larios SECURITY SALES MANAGER.[employer] Unavailable [phone] Source Comments In the event this information is protected by the Federal Confidentiality of Alcohol and Drug AbusePatient Records regulations: The Federal rules restrict any use of the information to criminally investigate or prosecute any alcohol or drug abuse patient.[facility] Reason for Visit * Reason Comments Future Appointment Encounter Details Date Type Department Care Team (Late st Contact Info) Description 05/29/2025 Telephone Cancer Appts [facility] [place] [address] Jonel Vaughan MD [facility] [place] [address] Future Appointment Social History Tobacco Use Types Packs/Day Years [...] is lower risk 2 05/29/2025 Data from: https://www.neighborhoodatlas.medicine.[facility].edu/. Last address used for calculation [address] 05/29/2025 Comments Unknown Sex and Gender Information Value Date Recorded Sex Assigned at Not on file Legal Sex Female 10:47 PM EDT Gender Identity Not on file Sexual Orientation Not on file documented as of this encounter Miscellaneous Notes * Telephone Encounter - Tonya Vázquez - 06/03/2025 3:10 PM EDT Called [facility] office spoke with Srinivasan. She states patient is scheduled for Port Placement with Dr Spangler on 06/04. Tonya Red * Telephone Encounter - Tonya Vázquez - 06/01/2025 2:12 PM EDT Called [facility] office spoke with Srinivasan. She states referral was placed at their office this morning. Their office will be calling patient MIRIAM to get scheduled for Port Placement. Tonya Red * Telephone Encounter - Ariella Vela - 05/29/2025 1:14 PM EDT Records faxed to [facility]. * Telephone Encounter - Debra Henry - 05/29/2025 11:29 AM EDT Please refer to [facility] for port placement. Hoping to start chemo on 06-12-25. Lanny, Please fax records Enrrique, Please follow up on this appt. Thank you documented in this encounter Plan of Treatment Upcoming Encounters Date Type Department Care Team (Latest Contact Info) Description 06/12/2025 8:30 AM EDT Infusion Center Hematology/Oncology [address] [place] [address] 2 week follow up with lab port draw chemotx [facility] 06/12/2025 9:00 AM EDT Visit (SP) Office Hematology/Oncology [address] [place] [address] Jonel Vaughan MD [address] [facility] [place] [address] 2 week follow up with lab port draw chemotx [facility] 06/12/2025 9:30 AM EDT Infusion Center Hematology/Oncology [address] [place] [address] Humberto, Chair [address] [place] [address] 2 week follow up with lab port draw chemotx [facility] 06/12/2025 11:15 AM EDT Education Nutrition Therapy [address] [address] [place], [place] [id number] Aimee Javier, BELINDA [address] [facility] [place] [address] Diffuse large b-cell lymphoma, lymph nodes of head, face, and neck ( documented as of this encounter Visit Diagnoses Not on filedocumented in this encounter Care Teams Cane Loader Relationship Specialty Start Date End Date Malgorzata Sanchez MD [address] [place] [address] PCP - General Family Medicine 05/21/25 Kailyn Hinojosa RN [address] [facility] [address] Specialty Livestock Ranch Hand Hematology/Oncology 06/01/25 Jonel Vaughan MD [address] [place] [address] [place] [address] Physician Hematology/Oncology 06/01/25 Kimmy Adams PAGilmerC [address] [place] [address] [place] [address] Physician Refurbish Technician Hematology/Oncology 06/01/25 Mariah Lopez APRN.[employer] [address] [place] [address] [place] [address] Nurse Practitioner Hematology/Oncology 06/01/25 Bronwyn Larios APRN.[employer] [address] [place] [address] [place] [address] Nurse Practitioner Hematology/Oncology 06/01/25 documented as of this encounter
--- OUTSIDE RECORDS SUMMARY | 2025-06-11 15:51 | XMS_ITS | Encounter Summary ---
Author Organization [facility] Address [address] [place] [address] Care Team Providers Care Mechanical Design Engineer Name Role Phone Malgorzata Sanchez MD Primary Care Provider + [phone] Kailyn Hinojosa RN Unavailable [phone] Jonel Vaughan MD Unavailable +- [phone] Kimmy Adams PA-C Unavailable [phone] Mariah Lopez PROGRAM DIRECTOR SCOUTING.BLAST SETTER Unavailable [phone] Bronwyn Larios PROGRAM DIRECTOR SCOUTING.BLAST SETTER Unavailable [phone] Source Comments In the event this information is protected by the Federal Confidentiality of Alcohol and Drug AbusePatient Records regulations: The Federal rules restrict any use of the information to criminally investigate or prosecute any alcohol or drug abuse patient.[facility] Encounter Details Date Type Department Care Team (Late st Contact Info) Description 05/08/2025 Lab Requisition [facility] [address] [place] [address] Kirill Montes De Oca, DO [address] [place] [address] Person encountering health services to consult on behalf of another person Social History Tobacco Use Types Packs/Day Years Used Date Smoking Tobacco: Never Assessed Comments Unknown Sex and Gender Information Value Date Recorded Sex Assigned at Not on file Legal Sex Female 10:47 PM EDT Gender Identity Not on file Sexual Orientation Not on file documented as of this encounter Plan of Treatment Upcoming Encounters Date Type Department Care Team (Latest Contact Info) Description 06/12/2025 8:30 AM EDT Infusion Center Hematology/Oncology [address] [place] [address] 2 week follow up with lab port draw chemotx [facility] 06/12/2025 9:00 AM EDT Visit (SP) Office Hematology/Oncology [address] [facility] [place] [address] Jonel Vaughan MD [address] [place] [address] 2 week follow up with lab port draw chemotx [facility] 06/12/2025 9:30 AM EDT Infusion Center Hematology/Oncology [address] [place] [address] Humberto, Chair [address] [place] [address] 2 week follow up with lab port draw chemotx [facility] 06/12/2025 11:15 AM EDT Education Nutrition Therapy [address] [facility] [place] [address] Aimee Javier, BELINDA [address] [place] [address] Diffuse large b-cell lymphoma, lymph nodes of head, face, and neck ( documented as of this encounter Procedures Procedure Name Priority Date/Time Associated Diagnosis Comments FLOW CYTOMETRY FOR LEUKEMIA/LYMPHOMA (FCLL) REFLEX Routine 05/08/2025 12:00 AM EDT Person encountering health services to consult on behalf of another person SURGICAL PATHOLOGY Routine 05/08/2025 12 :00 AM EDT Person encountering health services to consult on behalf of another person documented in this encounter Results * FLOW CYTOMETRY FOR LEUKEMIA/LYMPHOMA (FCLL) REFLEX (05/08/2025 12:00 AM EDT) Interpretation The findings demonstrate a subset of B cells that express CD10 and are negative for surface light chain. The findings are suspicious for a B-cell lymphoma, but correlation with the clinical and histopathologic findings is suggested for further classification. 05/14/2025 4:19 PM EDT [facility] at 1619 EDT Results Specimen [...] chain. MMN/MT 05/11/25 05/14/2025 4:19 PM EDT [facility] Gross Description A. Lymph Node, Biopsy RECEIVED 1 PIECE TISSUE MEASURING 0.2 CM BY 0.2 CM BY 0.2 CM 05/14/2025 4:19 PM EDT [facility] Diagnosis Comment This test was developed and its performance characteristics determined by [facility]'s [facility] [place] (-PLMI). It has not been cleared or approved by the FDA. RT-PLFL is regulated under CLIA as qualified to perform high-complexity testing. This test is used for clinical purposes. It should not be regarded as investigational or for research. 05/14/2025 4:19 PM EDT [facility] Performing Lab Diagnostic interpretation performed at [facility], [address] [place], [place] [id number] CLIA# [id number] Safety Clothing And Equipment Developer: Tommie Bob M.D. 05/14/2025 4:19 PM EDT [facility] Tissue LYMPH NODE BIOPSY SPECIMEN / Unknown 05/08/2025 05/08/2025 11:27 PM EDT us Kirill Montes De Oca DO SURGICAL PATHOLOGY Final Re sult [address] [place] [address], * SURGICAL PATHOLOGY (05/08/2025 12:00 AM EDT) Case Report Surgical Pathology Report Case: [id number] Authorizing Provider: Kirill Montes De Oca DO Collected: 05/08/2025 12:00 AM Ordering Location: [facility] Received: 05/08/2025 10:50 PM [facility] Pathologist: Madison Camarillo MD Specimen: Lymph Node, Biopsy, lt neck node ([id number]) 05/15/2025 9:56 AM EDT [facility] FINAL DIAGNOSIS This specimen was submitted for flow cytometry. Please see [id number] for the flow cytometry findings. Please refer to [id number] for the final diagnosis for the surgical pathology specimen. 05/15/2025 9:56 AM EDT [facility] at 0956 EDT Gross Description A. Lymph Node, Biopsy Received in [facility] for lymphoma protocol labeled lymph node, biopsy is a specimen consisting of 5 pieces of fibroadipose/lymph oid tissue measuring 1.7 x 1.4 x 0.2 cm in aggregate. The smallest fragment is submitted in RPMI for flow cytometry and remaining of the tissue is transferred to formalin for permanents in A1. Gross examination performed at [facility], [address] [place] [address] CLIA # [id number] [facility] 05/08/25 11:27 PM 05/15/2025 9:56 AM EDT [facility] Performing Lab Diagnostic interpretation performed at: [facility], [address] [facility] [place] [id number] CLIA# [id number] Safety Clothing And Equipment Developer: Tommie Bob MD 05/15/2025 9:56 AM EDT [facility] Disclaimer Laboratory Developed Test (LDT) Disclaimer: Performance characteristics of immunohistochemica l, immunofluorescent, and chromogenic in-situ hybridization tests have been determined by the performing laboratory within the [facility] Department of Pathology and Laboratory Medicine ([facility], [facility], [facility], [facility], [facility], [facility], [facility]1983, or [facility]) in a manner consistent with CLIA requirements. One or more of these tests may not have been cleared or approved by the FDA. The [facility] Department of Pathology and Laboratory Medicine is regulated under CLIA as qualified to perform high-complexity testing. These tests are used for clinical purposes. These should not be regarded as investigational or for research. Positive and negative controls stain appropriately. 05/15/2025 9:56 AM EDT [facility] Tissue LYMPH NODE BIOPSY SPECIMEN / Unknown 05/08/2025 05/08/2025 10:50 PM EDT us Kirill Montes De Oca DO SURGICAL PATHOLOGY Final Re sult [facility] [address] [place] [address], documented in this encounter Visit Diagnoses Diagnosis Person encountering health services to consult on behalf of another person Other person consulting on behalf of another person documented in this encounter Care Teams Mechanical Design Engineer Relationship Specialty Start Date End Date Malgorzata Sanchez MD [address] [place] [address] PCP - General Family Medicine 05/21/25 Kailyn Hinojosa, RN [address] [place] [address] Specialty Import Export Manager Hematology/Oncology 06/01/25 Jonel Vaughan MD [address] [place] [address] Physician Hematology/Oncology 06/01/25 Kimmy Adams PA-C [address] [place] [address] [place] [address] Physician Electrician Radio Hematology/Oncology 06/01/25 Mariah Lopez APRN.BLAST SETTER [address] [place] [address] [place] [address] Nurse Practitioner Hematology/Oncology 06/01/25 Bronwyn Larios APRN.BLAST SETTER [address] [place] [address] [place] [address] Nurse Practitioner Hematology/Oncology 06/01/25 documented as of this encounter
--- OUTSIDE RECORDS SUMMARY | 2025-06-11 15:51 | XMS_ITS | Encounter Summary ---
Author Organization [facility] Address [address] [place] [address] Care Team Providers Care Greige Goods Marker Name Role Phone Malgorztaa Sanchez MD Primary Care Provider + [phone] Source Comments In the event this information is protected by the Federal Confidentiality of Alcohol and Drug AbusePatient Records regulations: The Federal rules restrict any use of the information to criminally investigate or prosecute any alcohol or drug abuse patient.[facility] Encounter Details Date Type Department Care Team (Latest Contact Info) Description 05/29/2025 Travel Social History Tobacco Use Types Packs/Day Years Used Date Smoking Tobacco: Former Cigarettes AUDIT-C Answer Date Recorded Frequency of Alcohol Consumption Not on file 05/27/2025 Q2: How many drinks containi ng alcohol do you have on a typical day when you are drinking? Patient does not drink Frequency of Binge Drinking Not on file 08/2024 Area Deprivation Index Answer Date Epdro rded National Score (1-100), lower number is lower ri sk 47 05/29/2025 State Score (1-10), lower number is lower risk 2 05/29/2025 Data from: https://www.neighborhoodatlas.medicine.[facility].edu/. Last address used for calculation [address] 05/29/2025 Comments Unknown Sex and Gender Information Value Date Recorded Sex Assigned at Not on file Legal Sex Female 10:47 PM EDT Gender Identity Not on file Sexual Orientation Not on file documented as of this encounter Plan of Treatment Upcoming Encounters Date Type Department Care Team (Latest Contact Info) Description 06/12/2025 8:30 AM EDT Infusion Center Hematology/Oncology [address] [place] [address] 2 week follow up with lab port draw chemotx [facility] 06/12/2025 9:00 AM EDT Visit (SP) Office Hematology/Oncology [address] [place] [address] Jonel Vaughan MD [address] [place] [address] 2 week follow up with lab port draw chemotx [facility] 06/12/2025 9:30 AM EDT Infusion Center Hematology/Oncology [address] [place] [address] [place], Chair [address] [place] [address] 2 week follow up with lab port draw chemotx [facility] 06/12/2025 11:15 AM EDT Education Nutrition Therapy [address] [place] [address] Aimee Javier, RD [address] [place] [address] Diffuse large b-cell lymphoma, lymph nodes of head, face, and neck ( documented as of this encounter Visit Diagnoses Not on filedocumented in this encounter Care Teams Greige Goods Marker Relationship Specialty Start Date End Date Malgorzata Sanchez MD [address] [place] [address] PCP - General Family Medicine 05/21/25 documented as of this encounter
--- OUTSIDE RECORDS SUMMARY | 2025-06-11 15:51 | XMS_ITS | Encounter Summary ---
Author Organization [facility] Address [address] [place] [address] Care Team Providers Care Front Window Cashier Name Role Phone Malgorzata Sanchez MD Primary Care Provider + [phone] Kailyn Hinojosa RN Unavailable [phone] Jonel Vaughan MD Unavailable + [phone] Kimmy AdamsC Unavailable [phone] Mariah Lopez VALVE AND REGULATOR REPAIRER.MEDICAL EQUIPMENT REPAIRER Unavailable [phone] Bronwyn Larios VALVE AND REGULATOR REPAIRER.MEDICAL EQUIPMENT REPAIRER Unavailable [phone] Source Comments In the event this information is protected by the Federal Confidentiality of Alcohol and Drug AbusePatient Records regulations: The Federal rules restrict any use of the information to criminally investigate or prosecute any alcohol or drug abuse patient.[facility] Reason for Visit * Reason Comments Care Coordination Clinical update Encounter Details Date Type Department Care Team (Late st Contact Info) Description 06/11/2025 Telephone Hematology/Oncology [facility] [place] [address] Kailyn Hinojosa, RN [facility] [place] [address] Care Coordination (Clinical update) Social History Tobacco Use Types Packs/Day Years [...] is lower risk 2 05/29/2025 Data from: https://www.neighborhoodatlas.medicine.[facility].edu/. Last address used for calculation [address] 05/29/2025 Comments Unknown Sex and Gender Information Value Date Recorded Sex Assigned at Not on file Legal Sex Female 10:47 PM EDT Gender Identity Not on file Sexual Orientation Not on file documented as of this encounter Miscellaneous Notes * Telephone Encounter - Kailyn Hinojosa RN - 06/11/2025 12:33 PM EDT Pt notified Kailyn Hinojosa RN * Telephone Encounter - Jonel Vaughan MD - 06/11/2025 9:17 AM EDT OK. I will see her tmrw. Take OTC advil for now for pain control. Thank you * Telephone Encounter - Kailyn Hinojosa RN - 06/11/2025 9:08 AM EDT Call received from pt stating she has a bruise on her right hand that just started last night. Pt isn't sure if she bumped it and didn't realize it or what. Pt denies pain, swelling at the site. States there's a purple bruise and she wanted our office to be aware. Instructed pt to monitor for now. Pt states the swelling in the left side of her neck is getting bigger and becoming more painful. States it's putting a lot of pressure on her collar bone and the swelling is extending down below her collar bone now. Pt will be starting treatment tomorrow. Pt going for echo today at [facility]. Kailyn Hinojosa, RN documented in this encounter Plan of Treatment Upcoming Encounters Date Type Department Care Team (Latest Contact Info) Description 06/12/2025 8:30 AM EDT Infusion Center Hematology/Oncology [address] [place] [address] 2 week follow up with lab port draw chemotx [facility] 06/12/2025 9:00 AM EDT Visit (SP) Office Hematology/Oncology [address] [place] [address] Jonel Vaughan MD [address] [place] [address] 2 week follow up with lab port draw chemotx [facility] 06/12/2025 9:30 AM EDT Infusion Center Hematology/Oncology [address] [place] [address] [place], Chair [address] [place] [address] 2 week follow up with lab port draw chemotx [facility] 06/12/2025 11:15 AM EDT Education Nutrition Therapy [address] [facility] [place] [address] Aimee Javier, DAVID [address] [place] [address] Diffuse large b-cell lymphoma, lymph nodes of head, face, and neck ( documented as of this encounter Visit Diagnoses Not on filedocumented in this encounter Care Teams Front Window Cashier Relationship Specialty Start Date End Date Malgorzata Sanchez MD [address] [place] [address] PCP - General Family Medicine 05/21/25 Kailyn Hinojosa, RN [address] [place] [address] [place] [address] Specialty Prepress Stripper Hematology/Oncology 06/01/25 Jonel Vaughan MD [address] [place] [address] [place] [address] Physician Hematology/Oncology 06/01/25 Kimmy Adams PA-C [address] [place] [address] [place] [address] Physician Optometric Assistant Hematology/Oncology 06/01/25 Mariah Lopez APRN.MEDICAL EQUIPMENT REPAIRER [address] [place] [address] [place] [address] Nurse Practitioner Hematology/Oncology 06/01/25 Bronwyn Larios APRN.MEDICAL EQUIPMENT REPAIRER [address] [place] [address] [place] [address] Nurse Practitioner Hematology/Oncology 06/01/25 documented as of this encounter
--- OUTSIDE RECORDS SUMMARY | 2025-06-11 15:51 | XMS_ITS | Encounter Summary ---
Author Organization [facility] Address [address] [place] [address] Care Team Providers Care Automotive Sales Professional Name Role Phone Malgorzata Sanchez MD Primary Care Provider + [phone] Kailyn Hinojosa RN Unavailable [phone] Jonel Vaughan MD Unavailable +- [phone] Kimmy Adams PA-C Unavailable [phone] Mariah Lopez BRACELET AND BROOCH MAKER.CONTRACT PROJECT MANAGER Unavailable [phone] Bronwyn Larios BRACELET AND BROOCH MAKER.CONTRACT PROJECT MANAGER Unavailable [phone] Source Comments In the event this information is protected by the Federal Confidentiality of Alcohol and Drug AbusePatient Records regulations: The Federal rules restrict any use of the information to criminally investigate or prosecute any alcohol or drug abuse patient.[facility] Encounter Details Date Type Department Care Team (Late st Contact Info) Description 05/14/2025 Lab Requisition [facility] [address] [place] [address] Kyaw Lara MD [address] [place] [address] Person encountering health services to consult on [...] 8:30 AM EDT Infusion Center Hematology/Oncology [address] [place] [address] 2 week follow up with lab port draw chemotx [facility] 06/12/2025 9:00 AM EDT Visit (SP) Office Hematology/Oncology [address] [place] [address] Jonel Vaughan MD [address] [place] [address] 2 week follow up with lab port draw chemotx [facility] 06/12/2025 9:30 AM EDT [facility] Center Hematology/Oncology [address] [place] [address] Humberto, Chair [address] [place] [address] 2 week follow up with lab port draw chemotx [facility] 06/12/2025 11:15 AM EDT Education Nutrition Therapy [address] [facility] [place] [address] Aimee Javier, BELINDA [address] [place] [address] Diffuse large b-cell lymphoma, lymph nodes of head, face, and neck ( documented as of this encounter Procedures Procedure Name Priority Date/Time Associated Diagnosis Comments SURGICAL PATHOLOGY REFERENCE LAB CONSULT Routine 05/14/2025 9:19 AM EDT Person encountering health services to consult on behalf of another person FISH FOR AGGRESSIVE B-CELL LYMPHOMA Routine 05/14/2025 9:19 AM EDT Person encountering health services to consult on behalf of another person documented in this encounter Results * FISH FOR AGGRESSIVE B-CELL LYMPHOMA (05/14/2025 9:19 AM EDT) FISH for Aggressive B-cell Lymphoma FISH for Aggressive B-cell Lymphoma Tissue Laboratory Accession Number: [id number] Case: [id number] Block/Part ID: [id number] ([id number]; C1) Sample Type: FFPET Sample Description: LEFT [...] gene region. Nomenclature: nuc claudine(BCL6x2)[161/20 0],(MYCx2,IGHx3)[2 7/200],(MYCx3)[2 1/200],(BCL2x3~4)[ 31/200] METHODOLOGY: Fluorescence in situ hybridization analysis was performed using the following probes ([employer], [place], [place]): LSI MYC dual color, break-apart rearrangement probes; [employer]SI IGH/MYC/CEP8 tricolor, dual fusion probes; [employer]SI BCL2 dual color, break-apart rearrangement probes; and LSI BCL6 dual color, break-apart rearrangement probes. DISCLAIMER: This test was developed and its performance characteristics determined by [facility]'s Pathology and Laboratory Medicine Department. It has not been cleared or approved by the FDA. [facility] Pathology and Laboratory Medicine Department is regulated under CLIA as qualified to perform high-complexity testing. This test is used for clinical purposes. It should not be regarded as investigational or for research. Test performed at [facility] [place] [id number]. CLIA Number: [id number] Interpretation performed by Aimee Cazares MD, PhD 05/21/2025 3:57 PM EDT [facility] Blocks or Slides PARAFFIN EMBEDDED TISSUE BLOCK SPECIMEN / Unknown 05/14/2025 9:19 AM EDT 05/18/2025 7:34 PM EDT us Kyaw Lara MD LABORATORY Final Result [facility] [address] [facility] [address] [place] [address], * SURGICAL PATHOLOGY REFERENCE LAB CONSULT (05/14/2025 9:19 AM EDT) Case Report Surgical Pathology Report Case: [id number] Authorizing Provider: Kyaw Lara MD Collected: 05/14/2025 09:19 AM [facility] Received: 05/14/2025 09:17 AM [facility] Pathologist: Tila Oconnor MD, PhD Specimen: Block(s) and/or Slide(s), 48 SLIDES / 3 BLOCKS [id number];A2,B1FS,C1 05/21/2025 4:26 PM EDT [facility] FINAL DIAGNOSIS A. Outside slides Left jugular lymph node, level 2, left neck mass levels 2A and 2B, excisional biopsies (submitted parts A through C): -Involvement by [id number] aggressive B-cell lymphoma, pending additional testing, see comment. [facility] May 20, 2025 05/21/2025 4:26 PM EDT [facility] at 1153 EDT Diagnosis Comment Thank you for sending this case in consultation. Flow cytometry was also performed on the specimen (please see [id number] ), which demonstated an abnormal CD10 positive [...] Please contact the Hematopathology Consult Service at [phone] for any questions or if additional follow-up information becomes available. 05/21/2025 4:26 PM EDT [facility] Microscopic Description Histologic sections demonstrate [...] and S100. Additional stains are performed to [facility] to further clarify the morphologic findings. [...] a wild-type pattern. 05/21/2025 4:26 PM EDT [facility] Clinical History CONSULT REQUSTED 05/21/2025 4:26 PM T [facility] Performing Lab Diagnostic interpretation performed at: [facility], [place] [address] CLIA# [id number] Orthotic Aide: Tommie Bob MD 05/21/2025 4:26 PM EDT [facility] Addendum Aggressive B-Cell Neoplasm Biomarker Template 5th Edition /2021 ICC Diagnosis: Diffuse large B-cell lymphoma, NOS Biomarker Results: Cell of origin (Raimundo buck swamper): Germinal center MYC expression (% tumor cells by IHC): less than 40% BCL2 expression (% tumor cells by IHC): Negative Ki67 expression (% tumor cells by IHC): >70% Result Reference Range BCL6 Rearrangement 2% (0-9%) MYC Rearrangement 4% (0-11%) t(8;14)(q24.21;q32.33 ) IGH::MYC 0% (0-7%) BCL2 Rearrangement 1% (0-5%) 05/21/2025 4:26 PM EDT [facility] Addendum electronically signed by Tila Oconnor MD, PhD on 05/21/2025 at 1626 EDT Disclaimer Laboratory Developed Test (LDT) Disclaimer: Performance characteristics of immunohistochemical, immunofluorescent, and chromogenic in-situ hybridization tests have been determined by the performing laboratory within the [facility] Department of Pathology and Laboratory Medicine ([facility], [facility], [facility], [facility], [facility], [facility], or [facility]) in a manner consistent with CLIA requirements. One or more of these tests may not have been cleared or approved by the FDA. The [facility] Department of Pathology and Laboratory Medicine is regulated under CLIA as qualified to perform high-complexity testing. These tests are used for clinical purposes. These should not be regarded as investigational or for research. Positive and negative controls stain appropriately. 05/21/2025 4:26 PM EDT [facility] Blocks or Slides PARAFFIN EMBEDDED TISSUE BLOCK SPECIMEN / Unknown 05/14/2025 9:19 AM EDT 05/14/2025 9:17 AM EDT Kyaw Lara MD SURGICAL PATHOLOGY Edited Result - Final [facility] [address] [facility] [address] [place] [address], documented in this encounter Visit Diagnoses Diagnosis Person encountering health services to consult on behalf of another person Other person consulting on behalf of another person documented in this encounter Care Teams Automotive Sales Professional Relationship Specialty Start Date End Date Malgorzata Sanchez MD [address] [place] [address] PCP - General Family Medicine 05/21/25 Kailyn Hinojosa, RN [address] [place] [address] Specialty Machine Cloth Examiner Hematology/Oncology 06/01/25 Jonel Vaughan MD [address] [place] [address] [place] [address] Physician Hematology/Oncology 06/01/25 Kimmy Adams, PAGilmerC [address] [place] [address] [place] [address] Physician Air Table Operator Hematology/Oncology 06/01/25 Mariah Lopez APRN.CONTRACT PROJECT MANAGER [address] [place] [address] [place] [address] Nurse Practitioner Hematology/Oncology 06/01/25 Bronwyn Larios APRN.CONTRACT PROJECT MANAGER [address] [place] [address] [place] [address] Nurse Practitioner Hematology/Oncology 06/01/25 documented as of this encounter
--- OUTSIDE RECORDS SUMMARY | 2025-06-11 15:51 | XMS_ITS | Encounter Summary ---
Author Organization [facility] Address [address] [place] [address] Care Team Providers Care Development Associate Name Role Phone Malgorzata Sanchez MD Primary Care Provider + [phone] Kailyn Hinojosa RN Unavailable [phone] Jonel Vaughan MD Unavailable [phone] Kimmy AdamsC Unavailable [phone] Mariah Lopez EXHIBITS CURATOR.PURCHASING EXPEDITOR Unavailable [phone] Bronwyn Larios EXHIBITS CURATOR.PURCHASING EXPEDITOR Unavailable [phone] Source Comments In the event this information is protected by the Federal Confidentiality of Alcohol and Drug AbusePatient Records regulations: The Federal rules restrict any use of the information to criminally investigate or prosecute any alcohol or drug abuse patient.[facility] Encounter Details Date Type Department Care Team (Late st Contact Info) Description 06/01/2025 Orders Only Hematology/Oncology [facility] [place] [address] Jonel Vaughan MD [address] [place] [address] [place] [address] Social History Tobacco Use Types Packs/Day [...] is lower risk 2 05/29/2025 Data from: https://www.neighborhoodatlas.medicine.[facility].edu/. Last address used for calculation [address] [...] 8:30 AM EDT Infusion Center Hematology/Oncology [address] [facility] [place] [address] 2 week follow up with lab port draw chemotx [facility] 06/12/2025 9:00 AM EDT Visit (SP) Office Hematology/Oncology [address] [place] [address] Jonel Vaughan MD [address] [facility] [place] [address] 2 week follow up with lab port draw chemotx [facility] 06/12/2025 9:30 AM EDT Infusion Center Hematology/Oncology [address] [facility] [place] [address] Humebrto, Chair 4 [address] [place] [address] 2 week follow up with lab port draw chemotx [facility] 06/12/2025 11:15 AM EDT Education Nutrition Therapy [address] [place] [address] [facility] [place] [address] Diffuse large b-cell lymphoma, lymph nodes of head, face, and neck ( documented as of this encounter Visit Diagnoses Not on filedocumented in this encounter Care Teams Development Associate Relationship Specialty Start Date End Date Malgorzata Sanchez MD [address] [place] [address] PCP - General Family Medicine 05/21/25 Kailyn Hinojosa, RN [address] [facility] [place] [address] Specialty Product Safety Professional Hematology/Oncology 06/01/25 Jonel Vaughan MD [address] [facility] [place] [address] Physician Hematology/Oncology 06/01/25 Kimmy Adams PA-C [address] [place] [address] Physician Nut Tightener Hematology/Oncology 06/01/25 Mariah Lopez APRN.PURCHASING EXPEDITOR [address] [facility] [place] [address] Nurse Practitioner Hematology/Oncology 06/01/25 Bronwyn Larios APRN.PURCHASING EXPEDITOR [address] [place] [address] Nurse Practitioner Hematology/Oncology 06/01/25 documented as of this encounter
--- OUTSIDE RECORDS SUMMARY | 2025-06-11 15:51 | XMS_ITS | Encounter Summary ---
Author Organization [facility] Address [address] [place] [address] Care Team Providers Care Turnaround Planner Name Role Phone Malgorzata Sanchez MD Primary Care Provider + [phone] Kailyn Hinojosa RN Unavailable [phone] Jonel Vaughan MD Unavailable [phone] Kimmy Adams PA-C Unavailable [phone] Mariah Lopez CIRCULATION ASSISTANT.RESEARCH PROJECT COORDINATOR Unavailable [phone] Bronwyn Larios CIRCULATION ASSISTANT.RESEARCH PROJECT COORDINATOR Unavailable [phone] Source Comments In the event this information is protected by the Federal Confidentiality of Alcohol and Drug AbusePatient Records regulations: The Federal rules restrict any use of the information to criminally investigate or prosecute any alcohol or drug abuse patient.[facility] Encounter Details Date Type Department Care Team (Late st Contact Info) Description 06/11/2025 Patient Msg Hematology/Oncology [address] [place] [address] Provider, [facility] Financial Navigator Social History Tobacco Use Types Packs/Day Years [...] is lower risk 2 05/29/2025 Data from: https://www.neighborhoodatlas.medicine.[facility].edu/. Last address used for calculation [address] [...] 8:30 AM EDT Infusion Center Hematology/Oncology [address] [place] [address] 2 week follow up with lab port draw chemotx [facility] 06/12/2025 9:00 AM EDT Visit (SP) Office Hematology/Oncology [address] [facility] [address] Jonel Vaughan MD [address] [facility] [address] 2 week follow up with lab port draw chemotx [facility] 06/12/2025 9:30 AM EDT Infusion Center Hematology/Oncology [address] [facility] [address] Humberto, Chair [address] [place] [address] 2 week follow up with lab port draw chemotx [facility] 06/12/2025 11:15 AM EDT Education Nutrition Therapy [address] [place] [address] Aimee Javier, RD [address] [facility] [place] [address] Diffuse large b-cell lymphoma, lymph nodes of head, face, and neck ( documented as of this encounter Visit Diagnoses Not on filedocumented in this encounter Care Teams Turnaround Planner Relationship Specialty Start Date End Date Malgorzata Sanchez MD [address] [place] [id number] PCP - General Family Medicine 05/21/25 Kailyn Hinojosa RN [address] [place] [address] Specialty Anesthesia Resident Hematology/Oncology 06/01/25 Jonel Vaughan MD [address] [place] [address] [place] [address] Physician Hematology/Oncology 06/01/25 Kimmy Adams PA-C [address] [place] [address] [place] [address] Physician File Clerk Hematology/Oncology 06/01/25 Mariah Lopez, BANG.RESEARCH PROJECT COORDINATOR [address] [place] [address] [place] [address] Nurse Practitioner Hematology/Oncology 06/01/25 Bronwyn Larios, BANG.RESEARCH PROJECT COORDINATOR [address] [place] [address] [place] [address] Nurse Practitioner Hematology/Oncology 06/01/25 documented as of this encounter
--- OUTSIDE RECORDS SUMMARY | 2025-06-11 15:51 | XMS_ITS | Encounter Summary ---
Author Organization [facility] Address [address] [place] [address] Care Team Providers Care Binder Coverstitch Name Role Phone Malgorzata Sanchez MD Primary Care Provider + [phone] Kailyn Hinojosa RN Unavailable [phone] Jonel Vaughan MD Unavailable [phone] Kimmy Adams PA-C Unavailable [phone] Mariah Lopez FERMENTATION MANAGER.NURSE ADVISOR Unavailable [phone] Bronwyn Larios FERMENTATION MANAGER.NURSE ADVISOR Unavailable [phone] Source Comments In the event this information is protected by the Federal Confidentiality of Alcohol and Drug AbusePatient Records regulations: The Federal rules restrict any use of the information to criminally investigate or prosecute any alcohol or drug abuse patient.[facility] Reason for Visit * Reason Comments Orders Echo & Lab question Encounter Details Date Type Department Care Team (Late st Contact Info) Description 06/08/2025 Telephone Hematology/Oncology [address] [place] [address] [place] [address] Ana Cristina Stevens, FREDY Orders (Echo & Lab question) Social History Tobacco Use Types Packs/Day Years [...] is lower risk 2 05/29/2025 Data from: https://www.neighborhoodatlas.medicine.[facility].edu/. Last address used for calculation [address] 05/29/2025 Comments Unknown Sex and Gender Information Value Date Recorded Sex Assigned at Not on file Legal Sex Female 10:47 PM EDT Gender Identity Not on file Sexual Orientation Not on file documented as of this encounter Miscellaneous Notes * Telephone Encounter - Kailyn Hinojosa RN - 06/09/2025 1:13 PM EDT Lanny: can you keep an eye out for records please. Thanks Kailyn Hinojosa RN * Telephone Encounter - Jonel Vaughan MD - 06/08/2025 3:37 PM EDT OK fine. Thank you * Telephone Encounter - Ioana Bautista - 06/08/2025 3:34 PM EDT After speaking with Monica and multiple facilities, she is scheduled for her Echo at the [facility] this 06/11/25 at 4:00pm. The auth was switched by the [place] production scheduler and orders faxed. Ioana Bautista * Telephone Encounter - Naina Churchill - 06/08/2025 2:04 PM EDT I just recently checked with [facility] facilities, and nothing in a timely matter either. [place] possibly (I was able to get another patient in sooner there) Call was placed to patient to see if she would be willing to go wherever we can get her in sooner. Will then have to change facility with prior auth. Naina Churchill * Telephone Encounter - Jnoel Vaughan MD - 06/08/2025 10:39 AM EDT Ok to draw Hepatitis panel on the same day. Can we do ECHO sooner at any other facility ? Thank you * Telephone Encounter - Ana Cristina Stevens RN - 06/08/2025 9:01 AM EDT Monica is receiving her D1C1 [facility] 06/12/25. We just wanted to make sure you are ok with her Hep B panel being drawn the same day as treatment. Also, her echo isn't scheduled until 07/09/25 at [facility]. Are you ok to give her first AND second treatments (D1C2 will be due 07/03) without Echo results? Thank you, Ana Cristina Stevens RN documented in this encounter Plan of Treatment Upcoming Encounters Date Type Department Care Team (Latest Contact Info) Description 06/12/2025 8:30 AM EDT Infusion Center Hematology/[place] [address] 2 week follow up with lab port draw chemotx [facility] 06/12/2025 9:00 AM EDT Visit (SP) Office Hematology/[place] [address] Jonel Vaughan MD [address] [place] [address] [place] [address] 2 week follow up with lab port draw chemotx [facility] 06/12/2025 9:30 AM EDT Infusion Center Hematology/Oncology [address] [facility] [place] [address] Humberto, Chair [address] [place] [address] 2 week follow up with lab port draw chemotx [facility] 06/12/2025 11:15 AM EDT Education Nutrition Therapy [address] [place] [address] Aimee Javier, RD [address] [place] [address] Diffuse large b-cell lymphoma, lymph nodes of head, face, and neck ( documented as of this encounter Visit Diagnoses Not on filedocumented in this encounter Care Teams Binder Coverstitch Relationship Specialty Start Date End Date Malgorzata Sanchez MD [address] [place] [phone] PCP - General Family Medicine 05/21/25 Kailyn Hinojosa, RN [address] [facility] [address] Specialty Clinical Director Hematology/Oncology 06/01/25 Jonel Vaughan MD [address] [place] [address] [place] [address] Physician Hematology/Oncology 06/01/25 Kimmy Adams PAHouston [address] [facility] [place] [address] Physician Air Twister Winder Hematology/Oncology 06/01/25 Mariah Lopez APRN.NURSE ADVISOR [address] [place] [address] [place] [address] Nurse Practitioner Hematology/Oncology 06/01/25 Bronwyn Larios APRN.NURSE ADVISOR [address] [place] [address] [place] [address] Nurse Practitioner Hematology/Oncology 06/01/25 documented as of this encounter
--- OUTSIDE RECORDS SUMMARY | 2025-06-11 15:51 | XMS_ITS | Encounter Summary ---
Author Organization [facility] Address [address] [place] [address] Care Team Providers Care Calculating Machine Operator Name Role Phone Malgorzata Sanchez MD Primary Care Provider + [phone] Kailyn Hinojosa RN Unavailable [phone] Jonel Vaughan MD Unavailable + [phone] Kimmy AdamsC Unavailable [phone] Mariah Lopez SIZING SPRAYER.CLOTH TESTER QUALITY Unavailable [phone] Bronwyn Larios SIZING SPRAYER.CLOTH TESTER QUALITY Unavailable [phone] Source Comments In the event this information is protected by the Federal Confidentiality of Alcohol and Drug AbusePatient Records regulations: The Federal rules restrict any use of the information to criminally investigate or prosecute any alcohol or drug abuse patient.[facility] Reason for Visit * Reason Comments Care Coordination Port question Encounter Details Date Type Department Care Team (Late st Contact Info) Description 06/05/2025 Telephone Hematology/Oncology [facility] [place] [address] Kailyn Hinojosa, RN [facility] [place] [address] Care Coordination (Port question) Social History Tobacco Use Types Packs/Day [...] is lower risk 2 05/29/2025 Data from: https://www.neighborhoodatlas.medicine.[facility].edu/. Last address used for calculation [address] 05/29/2025 Comments Unknown Sex and Gender Information Value Date Recorded Sex Assigned at Not on file Legal Sex Female 10:47 PM EDT Gender Identity Not on file Sexual Orientation Not on file documented as of this encounter Miscellaneous Notes * Telephone Encounter - Kailyn Hinojosa RN - 06/05/2025 9:37 AM EDT Pt calls stating Dr Spangler placed her port yesterday and there's a dressing over it. Pt asking when she's allowed to remove it. Encouraged pt to call surgeon's office to see what their recommendation is. Dr Spangler's phone number provided to pt. Kailyn Hinojosa RN documented in this encounter Plan of Treatment Upcoming Encounters Date Type Department Care Team (Latest Contact Info) Description 06/12/2025 8:30 AM EDT Infusion Center Hematology/Oncology [facility] [place] [address] 2 week follow up with lab port draw chemotx [facility] 06/12/2025 9:00 AM EDT Visit (SP) Office Hematology/[place] [address] Jonel Vaughan MD [facility] [address] [facility] [address] 2 week follow up with lab port draw chemotx [facility] 06/12/2025 9:30 AM EDT Infusion Center Hematology/Oncology [address] [facility] [place] [address] Humberto, Chair [address] [place] [address] 2 week follow up with lab port draw chemotx [facility] 06/12/2025 11:15 AM EDT Education Nutrition Therapy [address] [place] [address] Aimee Javier, RD [address] [place] [address] Diffuse large b-cell lymphoma, lymph nodes of head, face, and neck ( documented as of this encounter Visit Diagnoses Not on filedocumented in this encounter Care Teams Calculating Machine Operator Relationship Specialty Start Date End Date Malgorzata Sanchez MD [address] [place] [phone] PCP - General Family Medicine 05/21/25 Kailyn Hinojosa, RN [address] [place] [address] Specialty Ballet Company Artistic Director Hematology/Oncology 06/01/25 Jonel Vaughan MD [address] [place] [address] [place] [address] Physician Hematology/Oncology 06/01/25 Kimmy Adams PAHouston [address] [place] [place] [address] Physician Investigator Utility Bill Complaints Hematology/Oncology 06/01/25 Mariah Lopez APRN.CLOTH TESTER QUALITY [address] [place] [address] [place] [address] Nurse Practitioner Hematology/Oncology 06/01/25 Bronwyn Larios APRN.CLOTH TESTER QUALITY [address] [place] [address] [place] [address] Nurse Practitioner Hematology/Oncology 06/01/25 documented as of this encounter
--- OUTSIDE RECORDS SUMMARY | 2025-06-11 15:51 | XMS_ITS | Encounter Summary ---
Author Organization [facility] Address [address] [place] [address] Care Team Providers Care Director Of Housing And Energy Services Name Role Phone Malgorzata Sanchez MD Primary Care Provider + [phone] Kailyn Hinojosa RN Unavailable [phone] Jonel Vaughan MD Unavailable + [phone] Kimmy AdamsC Unavailable [phone] Mariah Lopez FIREWALL ADMINISTRATOR.DOULA Unavailable +[phone] Bronwyn Larios FIREWALL ADMINISTRATOR.DOULA Unavailable [phone] Source Comments In the event this information is protected by the Federal Confidentiality of Alcohol and Drug AbusePatient Records regulations: The Federal rules restrict any use of the information to criminally investigate or prosecute any alcohol or drug abuse patient.[facility] Reason for Visit * Reason Comments First Time Treatment Education Encounter Details Date Type Department Care Team (Late st Contact Info) Description 06/01/2025 Education Hematology/Oncology [facility] [place] [address] Kailyn Hinojosa, RN [facility] [place] [address] First Time Treatment Education Social History Tobacco Use Types Packs/Day Years [...] is lower risk 2 05/29/2025 Data from: https://www.neighborhoodatlas.medicine.[facility].edu/. Last address used for calculation [address] 05/29/2025 Comments Unknown Sex and Gender Information Value Date Recorded Sex Assigned at Not on file Legal Sex Female 10:47 PM EDT Gender Identity Not on file Sexual Orientation Not on file documented as of this encounter Progress Notes * Kailyn Hinojosa RN - 06/01/2025 1:43 PM EDT ONCOLOGY PATIENT EDUCATION NOTE TOPIC: Chemotherapy, Medications: rituxan, cytoxan, adriamycin, vincristine, prednisone, acyclovir,allopurinol patient here today for education for treatment of Diffuse large B-cell lymphoma Anticipated/Scheduled start date: 06/12/25 READINESS TO LEARN: COGNITIVE ABILITY: Alert and oriented MOTIVATION TO LEARN: Interested FAMILY SUPPORT: Unable to assess - Family not present INSTRUCTION PROVIDED TO: Patient INSTRUCTION PROVIDED BY: Nurse Coordinator PATIENT LEARNS BEST BY: Multiple Methods FACTORS AFFECTING LEARNING: None PHYSICAL LIMITATIONS AFFECTING LEARNING: None LEARNING RESPONSE METHOD OF INSTRUCTION: Individual instruction Written instruction/Handouts Verbal instruction PATIENT/FAMILY RESPONSE: Verbalizes understanding of: CHEMOTHERAPY-Regimen, toxicity and side effects INFECTION MANAGEMENT-Signs and symptoms of an infection and importance of contacting the physician MEDICAL REGIMEN-Importance of following prescribed medical regimen MEDICATION DOSE MISSED-Correct action to take if medication dose is missed MEDICATION PRESCRIBED-Accurate knowledge of prescribed medication prior to discharge MEDICATION ROUTE-Correct route for administration of the prescribed medication MEDICATION SIDE EFFECTS-Side effects associated with the medication that warrant a call to the physician PATIENT SAFETY PRINCIPLES SYMPTOM MANAGEMENT-Correct actions to take to manage symptoms associated with his/her disease/illness WORSENING CONDITION-Signs and symptoms of a worsening condition that warrant a call to the physician Information received as demonstrated by interest and questions FOLLOW UP PLAN: Patient instructed to call with any further issues Recommend - Recommend continued instruction and follow up as directed Follow up phone call. Contact information given. SUPPLEMENTAL MATERIAL: Written material was provided at this visit with the following information: - Chemotherapy education was provided by a pharmacist NO student was in a different education and pharmacist was not at ledge at end of education - Side effect management information was provided/discussed including but not limited to: abdominaldiscomfort, anemia, appetite changes, arthralgia, bowel habit changes, cardiac toxicity, chest pain, diet, electrolyte disturbances, fatigue, hair loss, headache, hypersensitivity reaction, infection, kidney toxicity, mouth hygiene, mucositis, myalgia, nausea/vomitting, neutropenia, peripheral neuropathy, rash, risk for DVT, shortness of breath, skin changes, taste changes, thrombocytopenia YES - Provided important phone numbers and contacts during and after hours. YES - Provided information on symptoms that require immediate assistance. YES - Provided Chemotherapy when to call handouts YES - Preventing infection. YES - Treatment schedule and confirmation of appointment times. YES - Available support groups. NA - The importance of contraception during the course of chemotherapy NA - Prescriptions for anti-emetics or treatment prep was given: Compazine and Zofran. YES - A tour was given of the infusion suite with directions for the first day. YES - Neutropenic fever protocol discussed with patient, which included the importance of reporting anyfever of 100.4F (38.0C) or greater to the healthcare team as noted on the provided wallet card and/or magnet. YES - Cancer Wellness Program Pamphlet. YES - [facility] [place] Information. YES - Patient services information. YES - My Journey binder provided to pt at her visit today. Time Spent: 1 hour 10 minutes REFERRAL (RECOMMENDATION): pt aware of services we provide here at our office. She is interested [facility] [employer] [facility] message sent to [place] requesting her to meet with pt when she's her for her 1st cycle. Kailyn Hinojosa, RN Investor Relations Associate Pre Chemo Patient identified by name and date of . YES Confirmed date and time for chemotherapy ? YES Other appointments (labs, imaging) discussed? YES Discussed where to park (medical asst), charge for parking NO Discussed where to report (building/floor) NO Any pre-medications ordered? YES allopurinol, acyclovir, prednisone Described the infusion room and what to expect. (What to wear, what to bring [iPad, books] amount of time treatment can take, meals and CC options for food) YES Note: tour of infusion room and art room given to pt. Discussed whether the patient can eat prior to labs and treatment. YES Who is driving you to and from treatment? self Discussed why it is important to bring someone with you. No Resources discussed (music therapy, Art therapy, pet therapy, etc.) YES Education on chemotherapy (drug, side effects) discussed and that the patient will be receiving a C1D1 call within 7 days of treatment. YES Other topics discussed, interventions needed: explained port procedure to pt as well as echo. Pt will order picker/assembler scripts today. Pt will start taking allopurinol and acyclovir this Sunday, 06/05. Pt will begin taking prednisone on 06/12 with day one of cycle one. Calendar has been made and mailedto pt. Kailyn Hinojosa RN documented in this encounter Miscellaneous Notes * Addendum Note - Violette Benoit RPh - 06/01/2025 1:43 PM EDTAddended by: VIOLETTE BENOIT on: 06/01/2025 02:36 PM Modules accepted: Orders documented in this encounter Plan of Treatment Upcoming Encounters Date Type Department Care Team (Latest Contact Info) Description 06/12/2025 8:30 AM EDT Infusion Center Hematology/Oncology [address] [place] [address] [place] [address] 2 week follow up with lab port draw chemotx [facility] 06/12/2025 9:00 AM EDT Visit (SP) Office Hematology/[place] [address] Jonel Vaughan MD [address] [place] [address] [place] [address] 2 week follow up with lab port draw chemotx [facility] 06/12/2025 9:30 AM EDT Infusion Center Hematology/Oncology [address] [facility] [place] [address] Humberto, Chair [address] [place] [address] 2 week follow up with lab port draw chemotx [facility] 06/12/2025 11:15 AM EDT Education Nutrition Therapy [address] [place] [address] Aimee Javier, BELINDA [address] [place] [address] Diffuse large b-cell lymphoma, lymph nodes of head, face, and neck ( documented as of this encounter Visit Diagnoses Diagnosis Diffuse large b-cell lymphoma, lymph nodes of head, face, and neck (HCC)- Primary documented in this encounter Care Teams Director Of Housing And Energy Services Relationship Specialty Start Date End Date Malgorzata Sanchez MD [address] [place] [phone] PCP - General Family Medicine 05/21/25 Kailyn Hinojosa RN [address] [place] [address] Specialty Investor Relations Associate Hematology/Oncology 06/01/25 Jonel Vaughan MD [address] [place] [address] [place] [address] Physician Hematology/Oncology 06/01/25 Kimmy Adams PAHouston [address] [place] [address] [place] [address] Physician Mixer Slagman Hematology/Oncology 06/01/25 Mariah Lopez APRN.DOULA [address] [place] [address] [place] [address] Nurse Practitioner Hematology/Oncology 06/01/25 Bronwyn Larios APRN.DOULA [address] [place] [address] [place] [address] Nurse Practitioner Hematology/Oncology 06/01/25 documented as of this encounter
--- OUTSIDE RECORDS SUMMARY | 2025-06-11 15:51 | XMS_ITS | Encounter Summary ---
Author Organization [facility] Address [address] [place] [address] Care Team Providers Care Assistant Grocery Name Role Phone Malgorzata Sanchez MD Primary Care Provider + [phone] Case, Ava Waters MARK UP DESIGNER Unavailable [phone] Case, Ava Watesr MARK UP DESIGNER Unavailable [phone] Encounter Details Date Type Department Care Team (Late st Contact Info) Description 05/05/2025 External Result Encounter [facility] External Department Unsolicited Kirill Montes De Oca, DO [address] [place] [address] Social History Tobacco Use Types Packs/Day Years Used Date Smoking Tobacco: Former Cigarettes 2.5 38.9 0 11/25/1969 - 01/25/2005 Smokeless Tobacco: Never Comments:Forced to quit maikel use of health problems Alcohol Use Standard Drinks/Week Comments Not Currently 0 (1 standard drink = 0.6 oz pur e alcohol) Recoving alcoholic B1300 Health Literacy Answer Date Recor ded How often do you need to hav e someone help you when you read instructions, pamphlets, or other written material from your doctor or pharmacy? Never 04/14/2025 Humiliation, Afraid, Rape, and Kick questionnair e Answer Date Recorded Within the last year, have y ou been afraid of your partner or ex-partner? No 04/14/2025 Within the last year, have y ou been humiliated or emotionally abused in other ways by your partner or ex-partner? No Within the last year, have y ou been kicked, hit, slapped, or otherwise physically hurt by your partner or ex-partner? No 04/14/2025 Within the last year, have y ou been raped or forced to have any kind of sexual activity by your partner or ex-partner? No 04/14/2025 Social Connection and Isolation Panel Answer Date Recorded In a typical week, how many times do you talk on the phone with family, friends, or neighbors? More than three times a week 04/14/2025 How often do you get togethe r with friends or relatives? More than three times a week 04/14/2025 How often do you attend chur ch or bahai services? Never 04/14/2025 Do you belong to any clubs o r organizations such as temple groups, unions, fraternal or athletic groups, or school groups? No 04/14/2025 How often do you attend meet ings of the clubs or organizations you belong to? Never 04/14/2025 Are you , , di vorced, , never , or living with a partner? Never 04/14/2025 AUDIT-C Answer Date Recorded Q1: How often do you have a drink containing alcohol? Never 04/14/2025 Q2: How many drinks containi ng alcohol do you have on a typical day when you are drinking? Patient does not drink Q3: How often do you have si x or more drinks on one occasion? Never 04/14/2025 Overall Financial Resource Strain (CARDIA) Answe r Date Recorded How hard is it for you to pa y for the very basics like food, housing, medical care, and heating? Very hard 04/14/2025 PHQ-2 Answer Date Recorded Patient Health Questionnaire-2 Score 3 04/14/2025 [facility]ational Stress Questionnaire Answer Date Recorded Do you feel stress - tense, restless, nervous, or anxious, or unable to sleep at night because your mind is troubled all the time - these days? To some extent 04/14/2025 Exercise Vital Sign Answer Date Recorde d On average, how many days pe r week do you engage in moderate to strenuous exercise (like a brisk walk)? 7 days 04/14/2025 On average, how many minutes do you engage in exercise at this level? 150+ min 04/14/2025 Hunger Vital Sign Answer Date Recorded Within the past 12 months, y ou worried that your food would run out before you got the money to buy more. Sometimes true Within the past 12 months, t he food you bought just didn't last and you didn't have money to get more. Often true PRAPARE - Transportation Answer Date Re corded In the past 12 months, has l ack of transportation kept you from medical appointments or from getting medications? Yes 03/27 In the past 12 months, has l ack of transportation kept you from meetings, work, or from getting things needed for daily living? Yes 04/14/2025 Housing Stability Vital Sign Answer Mata e [...] place to sleep or slept in a halfway (including now)? No 05/21/2023 Housing Stability Vital Sign Answer Mata e Recorded In the last 12 months, was t here a time when you were not able to pay the mortgage or rent on time? Yes 04/14/2025 In the past 12 months, how m any times have you moved where you were living? 0 04/14/2025 At any time in the past 12 m [facility], were you homeless or living in a halfway (including now)? No 04/14/2025 Comments Unknown Sex and Gender Information Value Date Recorded Sex Assigned at Female 05/21/2023 6:07 PM EDT Legal Sex Female 4:08 PM EDT Gender Identity Female 05/21/2023 6:07 PM EDT Sexual Orientation Not on file documented as of this encounter Plan of Treatment Upcoming Encounters Date Type Department Care Team (Late st Contact Info) Description 06/22/2025 1:45 PM EDT Office Visit [facility] [place] Otolaryngology [address] [place] [address] Kirill Montes De Oca, DO [address] [facility] [place] [address] documented as of this encounter Procedures Procedure Name Priority Date/Time Associated Diagnosis Comments ECG 12-LEAD 05/05/2025 4:38 PM EDT documented in this encounter Results * ECG 12 lead (05/05/2025 4:38 PM EDT) 05/05/2025 4:38 PM EDT Narrative [facility] 05/06/2025 8:48 AM EDT [place] [id number] Electrocardiograph Report Signed Patient: Monica Clay MR#: [id number] : 1955 Acct:[id number] Age/Sex: 70 / F ADM Date: 05/05/25 Loc: Room: Type: [facility] Attending Dr: Kirill Montes De Oca DO Ordering Provider: Kirill Montes De Oca DO Date of Service: 05/05/2505/21/1629 ECG/ECG 12 lead ECG: pst Copies to: Test Reason : Blood Pressure : */* mmHG Vent. Rate : 67 BPM Atrial Rate : 67 BPM P-R Int : 160 ms QRS Dur : 88 ms QT Int : 392 ms P-R-T Axes : 50 -15 28 degrees QTcB Int : 414 ms Normal sinus rhythm Normal ECG No previous ECGs available Confirmed by Davis Zapien ([id number]) on 05/06/2025 8:47:44 AM Referred By: Electronically Signed By: Davis Zapien Transcribed By: MUS Signed By Davis Zapien MD 05/06/25 0847 Procedure Note Davis Zapien MD - 05/06/[address] [address] Electrocardiograph Report Signed Patient: Rai ClayR#: [id number] : 1955cct:[id number] Age/Sex: 70 / FADM Date: 05/05/25 Loc: PS Room:Type: [facility] Attending Dr: Kirill Montes De Oca DO Ordering Provider: Kirill Montes De Oca DO Date of Service: 05/05/2505/21/1629 ECG/ECG 12 lead ECG: pst Copies to: Test Reason : Blood Pressure : */* mmHG Vent. Rate : 67 BPM Atrial Rate : 67 BPM P-R Int : 160 ms QRS Dur : 88 ms QT Int : 392 ms P-R-T Axes : 50 -15 28 degrees QTcB Int : 414 ms Normal sinus rhythm Normal ECG No previous ECGs available Confirmed by Davis Zapien ([id number]) on 05/06/2025 8:47:44 AM Referred By: Electronically Signed By: Davis Zapien Transcribed By: MUS Signed By Davis Zapien MD 05/06/25 0847 us Kirill Montes De Oca DO ECG ORDERABLES Final Resul t Performing Organization Address City/State/[facility] Co de Phone Number [facility] [address] [place], [place] [address] documented in this encounter Visit Diagnoses Not on filedocumented in this encounter Care Teams Assistant Grocery Relationship Specialty Start Date End Date Malgorzata Sanchez MD [address] [place] [phone] PCP - General Family Medicine 05/21/23 Ava Dow NP [address] [place] [address] PCP - Jerome JONES 11/25/24 Ava Dow NP [address] [place] [address] Nurse Practitioner Family Medicine 05/21/23 documented as of this encounter
--- OUTSIDE RECORDS SUMMARY | 2025-06-11 15:51 | XMS_ITS | Encounter Summary ---
Author Organization [facility] Address [address] [place] [id number] Care Team Providers Care Dining Room Maid Name Role Phone Malgorzata Sanchez MD Primary Care Provider + [phone] Kailyn Hinojosa RN Unavailable [phone] Jonel Vaughan MD Unavailable [phone] Kimmy AdamsC Unavailable [phone] Mariah Lopez CUSTOMER SERVICE ADVOCATE.STUDENT SUPPORT COUNSELOR Unavailable [phone] Bronwyn Larios CUSTOMER SERVICE ADVOCATE.STUDENT SUPPORT COUNSELOR Unavailable [phone] Source Comments In the event this information is protected by the Federal Confidentiality of Alcohol and Drug AbusePatient Records regulations: The Federal rules restrict any use of the information to criminally investigate or prosecute any alcohol or drug abuse patient.[facility] Reason for Visit * Reason Comments Care Coordination appointments Future Appointment Encounter Details Date Type Department Care Team (Late st Contact Info) Description 06/01/2025 Telephone Hematology/Oncology [facility] [place] [address] Kailyn Hinojosa, RN [address] [place] [address] [place] [address] Care Coordination (appointments); Future Appointment Social History Tobacco Use Types [...] Telephone Encounter - Kailyn Hinojosa RN - 06/01/2025 4:31 PM EDT Pt notified of this. Kailyn Hinojosa RN * Telephone Encounter - Debra Henry - 06/01/2025 2:51 PM EDT Monica has been referred to Dr Arrieta for port placement. They rec'd records and will be calling the patient to schedule. Last I knew their office is out until later this week for ports. Echo pre cert was obtained today and faxed to [facility]. They will call the patient to schedule. I will call them soon to make sure they rec'd. * Telephone Encounter - Kailyn Hinojosa RN - 06/01/2025 2:06 PM EDT Has pt's port or echo been scheduled yet? Pt is scheduled to start treatment 06/12/25 Kailyn Hinojosa RN documented in this encounter Plan of Treatment Upcoming Encounters Date Type Department Care Team (Latest Contact Info) Description 06/12/2025 8:30 AM EDT Infusion Center Hematology/Oncology [address] [place], [place] [id number] 2 week follow up with lab port draw chemotx [facility] 06/12/2025 9:00 AM EDT Visit (SP) Office Hematology/Oncology [address] [place] [address] Jonel Vaughan MD [address] [place] [address] 2 week follow up with lab port draw chemotx [facility] 06/12/2025 9:30 AM EDT Infusion Center Hematology/Oncology [address] [place] [address] Humberto, Chair [address] [place] [address] 2 week follow up with lab port draw chemotx [facility] 06/12/2025 11:15 AM EDT Education Nutrition Therapy [address] [place] [address] Aimee Javier, RD [address] [place] [address] Diffuse large b-cell lymphoma, lymph nodes of head, face, and neck ( documented as of this encounter Visit Diagnoses Not on filedocumented in this encounter Care Teams Dining Room Maid Relationship Specialty Start Date End Date Malgorzata Sanchez MD [address] [place] [id number] PCP - General Family Medicine 05/21/25 Kailyn Hinojosa RN [address] [place] [address] Specialty Fuel Tank Sealer And Tester Hematology/Oncology 06/01/25 Jonel Vaughan MD [address] [place] [address] Physician Hematology/Oncology 06/01/25 Kimmy Adams PA-C [address] [place] [address] Physician Community Health Counselor Hematology/Oncology 06/01/25 Mariah Lopez APRN.STUDENT SUPPORT COUNSELOR [address] [place] [address] [place] [address] Nurse Practitioner Hematology/Oncology 06/01/25 Bronwyn Larios APRN.STUDENT SUPPORT COUNSELOR [address] [place] [address] [place] [address] Nurse Practitioner Hematology/Oncology 06/01/25 documented as of this encounter
--- OUTSIDE RECORDS SUMMARY | 2025-06-11 15:51 | XMS_ITS ---
Author Organization [facility] Address [address] [place] [address] Care Team Providers Care Paper Cup Machine Operator Name Role Phone Malgorzata Sanchez MD Primary Care Provider + [phone] Kailyn Hinojosa RN Unavailable [phone] Jonel Vaughan MD Unavailable [phone] Kimmy Adams PA-C Unavailable [phone] Mariah Lopez CABLE WORKER HELPER.SUB PLANT MANAGER Unavailable [phone] Bronwyn Larios CABLE WORKER HELPER.SUB PLANT MANAGER Unavailable [phone] Active Problems Problem Noted Date Diagnosed Date Diffuse large b-cell lymphom a, lymph nodes of head, face, and neck 05/29/2025 Current Treatment and Therapy Plans AMB R-CHOP - RITUXIMAB 375/1400 DOXORUBICIN 50 VINCRISTINE 1.4 CYCLOPHOSPHAMIDE 750 D1 PREDNISONE 100 D1-5 - Q21D* Plan Start Date:06/12/2025 Plan Provider:Jonel Vaughan MD Linked Problems Diffuse large b-cell lymphom a, lymph nodes of head, face, and neck (HCC) Treatment Medications Current Day (Day 1 , Cycle 1 - Planned for 06/12/2025) Next Day (Day 1, Cycle 2 - Planned for 07/03/2025) cyclophosphamide iv piggybac k (CYTOXAN)DOXOrubicin (ADRIAMYCIN)palonosetron (ALOXI)pegfilgrastim-cbqv (UDENYCA ONBODY)riTUXimab - hyaluronidase (RITUXAN HYCELA)riTUXimab iv piggyback (RITUXAN)vinCRIStine in NS iv piggyback (ONCOVIN) cycloPHOSphamide 1,268 mg in NaCl 0.9% 313.4 mL (CYTOXAN)DOXOrubicin 84.5 mg injection (ADRIAMYCIN)palonosetron 0.25 mg injection (ALOXI)pegfilgrastim-cbqv 6 mg wearable injection (UDENYCA ONBODY)riTUXimab 600 mg in NaCl 0.9% 560 mL (RITUXAN)vinCRIStine 2 mg in NaCl 0.9% 52 mL (ONCOVIN) cycloPHOSphamide 1,268 mg in NaCl 0.9% 313.4 mL (CYTOXAN)DOXOrubicin 84.5 mg injection (ADRIAMYCIN)palonosetron 0.25 mg injection (ALOXI)pegfilgrastim-cbqv 6 mg wearable injection (UDENYCA ONBODY)riTUXimab 600 mg in NaCl 0.9% 560 mL (RITUXAN)vinCRIStine 2 mg in NaCl 0.9% 52 mL (ONCOVIN) Past Treatment and Therapy Plans No past plan information found.
--- OUTSIDE RECORDS SUMMARY | 2025-06-11 15:51 | XMS_ITS | Clinical Summary ---
Author Organization [facility] Healthcare Address [address] [place] [address] Care Team Providers Care Cab Driver Name Role Phone Malgorzata Sanchez MD Primary Care Provider [phone] Case, Ava Waters STOCK ROLLER Unavailable [phone] Case, Ava Waters STOCK ROLLER Unavailable [phone] Allergies No known active allergies Medications diphenhydrAMINE (BENADryl) 25 MG capsule Take 25 mg by mouth every 6 (six) hours if needed for itching Active famotidine (Pepcid) 20 MG tablet Take 20 mg by mouth as needed at bedtime for heartburn Active latanoprost (Xalatan) 0.005 % ophthalmic solution INSTILL 1 DROP IN THE RIGHT EYE EVERY EVENING AT BEDTIME discard 42 days after opening 5 Active glucosamine-cho ndroitin 750-600 MG tablet tablet 1 tablet 5 Active HYDROcodone-matt taminophen ([place]) 5-325 MG tablet TAKE 1 TABLET BY MOUTH EVERY 6 HOURS NEEDED FOR SEVERE PAIN 5 Active Active Problems Problem Noted Date Diagnosed Date Pulmonary nodule 1 cm or greater in diameter COPD (chronic obstructive pulmonary disease) GERD (gastroesophageal reflux disease) 5 Encounters Date Type Department Care Team Description 05/20/2025 1:30 PM EDT Office Visit [facility] [address] [place] [address] Kirill Montes De Oca, DO 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, unspecified B-cell lymphoma type (HCC) (Primary Dx) 05/20/2025 Telephone [facility] [address] [place] [facility] [place] [place] [address] Malgorzata Sanchez MD Referral 05/20/2025 Bamboo flowsheet [facility] [address] [place] [address] Kirill Montes De Oca, DO 05/20/2025 Travel 05/08/2025 12:15 PM EDT Procedure Visit [facility] EXT DEP Kirill Montes De Oca, Cervical adenopathy (Primary Dx) 05/08/2025 Clinisync Result Encounter [facility] External Department Unsolicited Kirill Montes De Oca, DO 05/08/2025 External Result Encounter [facility] External Department Unsolicited Kirill Montes De Oca, DO 05/05/2025 8:30 AM EDT Office Visit [facility] [address] [place] [address] Kirill Montse De Oca, Cervical adenopathy (Primary Dx); Neck mass 05/05/2025 External Result Encounter [facility] External Department Unsolicited Kirill Montes De Oca, DO 05/05/2025 External Result Encounter [facility] External Department Unsolicited Kirill Montes De Oca, DO 05/05/2025 External Result Encounter [facility] External Department Unsolicited Kirill Montes De Oca, DO 05/05/2025 Orders Only [facility] [address] [place] [address] Antoine Bar MA Neck mass; Malignant neoplasm of head, face, and neck (HCC) 05/05/2025 Travel 05/04/2025 11:20 AM EDT Office Visit [facility] [address] [place] [facility] [place] [place] [address] Ava Dow NP Neck mass (Primary Dx); Neck pain on left side; Pulmonary nodule 1 cm or greater in diameter 05/04/2025 Bamboo flowsheet [facility] [address] [address] Ava Dow NP 05/04/2025 Travel 04/30/2025 1:30 PM EDT [address] [facility] [address] [place] [phone] Pulmonary nodule 1 cm or greater in diameter; History of smoking 04/30/2025 Travel 04/24/2025 Results Follow-Up [address] [address] soft tissue neck w IV contrast 04/23/2025 Travel 04/22/2025 2:00 [address] [facility] [address] [place] [phone] History of smoking; Neck mass; Cervical lymphadenopathy 04/22/2025 Travel 04/21/2025 10:00 AM EDT Office Visit [address] [address] Ava Dow NP Encounter for Medicare annual wellness exam (Primary Dx); Encounter for well adult exam with abnormal findings; Other emphysema (HCC); Chronic obstructive pulmonary disease, unspecified COPD type (HCC); Bronchiectasis, uncomplicated (HCC); Benign essential hypertension ; Pulmonary nodule 1 cm or greater in diameter; History of smoking; Neck mass; Cervical lymphadenopathy 04/21/2025 Clinisync Result Encounter [facility] External Department Unsolicited Ava Dow NP 04/21/2025 Bamboo flowsheet [facility] [address] [address] Ava Dow NP 04/21/2025 Travel 04/14/2025 Travel from Last 3 Months Immunizations Immunization Administration Dates Next Due Influenza, High Dose Seasonal, Preservative Free 09/29/2024 Influenza, High-dose Seasona l, Quadrivalent, Preservative Free 07/14/2023 Influenza, injectable, quadrivalent, preservativ e free 07/29/2022,09/08/2021 Pneumococcal Conjugate PCV 13 10/15/2019 Pneumococcal Polysaccharide PPSV23 10/11/2021 SARS-COV-2 (COVID-19) vaccin e, mRNA, spike protein, LNP, bivalent, preservative free, 30 mcg/0.3 mL dose, cindy-sucrose formulation 07/29/2022 Zoster, live 09/13/2016 Family History Medical History Relation Name Comments Alcohol abuse Father Morgan Clay Diabetes Father Morgan Clay Hearing loss Father Morgan Clay Heart disease Father Morgan Clay Hypertension Father Morgan Clay Alcohol abuse Father's Sister Lian Clay Asthma Father's Sister Lian Clay Alcohol abuse Mother Aimee Clay Hearing loss Mother Aimee Clay Hypertension Mother Aimee Clay Vision loss Mother Aimee Clay Cancer Paternal Grandfather Jose Tobin Cancer Paternal Grandmother Debo Clay Relation Name Status Comments Father Morgan Clay Father's Sister Lian Clay Mother Aimee Clay Paternal Grandfather Jose Tobin Paternal Grandmother Debo Clay Social History Tobacco Use Types Packs/Day Years Used Date Smoking Tobacco: Former Cigarettes 2.5 38.9 0 11/25/1969 - 01/25/2005 Smokeless Tobacco: Never Tobacco Cessation:Counseling Given: Not Answered Comments:Forced to quit because of health problems Alcohol Use Standard Drinks/Week [...] 04/14/2025 How often do you attend chur or oriental orthodox services? Never 04/14/2025 Do you belong to any clubs o r organizations such as jew groups, unions, fraternal or athletic groups, or [...] Recorded Patient Health Questionnaire-2 Score 3 04/14/2025 [facility] - Occupational Stress [...] place to sleep or slept in a mcfp (including now)? No 05/21/2023 Housing Stability Vital [...] time in the past 12 m [facility], were you homeless or living in a mcfp (including now)? No 04/14/2025 Comments Unknown Sex and Gender Information Value Date Recorded Sex Assigned at Female 05/21/2023 6:07 PM EDT Legal Sex Female 4:08 PM EDT Gender Identity Female 05/21/2023 6:07 PM EDT Sexual Orientation Not on file Last Filed Vital Signs Vital Sign Reading Time Taken Comments Blood Pressure 156/80 05/04/2025 11:12 AM EDT Pulse 87 05/04/2025 11:12 AM EDT Temperature 36.2 C (97.1 F) 05/04/2025 11:12 AM EDT Respiratory Rate 17 05/04/2025 11:12 AM EDT Oxygen Saturation 97% 05/04/2025 11:12 AM EDT Inhaled Oxygen Concentration - - Weight 65.8 kg (145 lb) 05/20/2025 1:20 PM EDT Height 153.7 cm (5' 0.5 ) 05/20/2025 1:20 PM EDT Body Mass Index 27.85 05/20/2025 1:20 PM EDT Plan of Treatment Upcoming Encounters Date Type Department Care Team (Late st Contact Info) Description 06/22/2025 1:45 PM EDT Office Visit [facility] [address] [place] [address] Kirill Montes De Oca, DO [address] [facility] [place] [address] Health Maintenance Due Date Last Done Comments CT Colonography 1955 Colonoscopy 1955 Sigmoidoscopy 1955 FIT 10/02/2017 10/02/2016 FOBT 10/28/2020 10/29/2019, 10/02/2016 Influenza Vaccine (#1) 2025 , 07/14/2023, 07/29/2022, Additional history exists Mammogram 09/05/2025 09/05/2024, 05/27, 10/25/2021, Additional history exists Colorectal Cancer Screening 11/15/2025 FIT-DNA 11/15/2025 11/15/2022, 10/29/2019 Medicare Annual Wellness (AWV) 04/21/2026 0 04/21/2025, 11/16/2023, 10/12/2022, Additional history exists Pneumococcal Vaccine: 65+ Years Completed 2, 10/15/2019 Procedures Procedure Name Priority Date/Time Associated Diagnosis Comments PET/CT SKULL BASE TO MID THIGH STAT 05/08/2025 10:23 AM EDT Neck mass Malignant neoplasm of head, face, and neck (HCC) GLUCOSE POCT GLUCOMETERS Routine 05/08/2025 7:43 AM EDT TISS PATH BX REPORT Routine 05/08/2025 1 2:00 AM EDT [facility] FLOW CYTOMETRY FOR LEUKEMIA/LYMPHOMA (FCLL) REFLEX Routine 05/08/2025 12:00 AM EDT BASIC METABOLIC PANEL Routine 05/05/2025 5:11 PM EDT CBC WITH AUTO DIFFERENTIAL Routine 05/05/2025 5:11 PM EDT ECG 12-LEAD 05/05/2025 4:[address] LUNG SCREENING LOW DOSE Routine 04/30/2025 1:43 PM EDT Pulmonary nodule 1 cm or greater in diameter History of smoking CT SOFT TISSUE NECK W IV CONTRAST Routine 04/22/2025 1:53 PM EDT History of smoking Neck mass Cervical lymphadenopathy ALL LIPID PROFILE (FASTING) Routine 04/21/2025 11:07 AM EDT [facility] CMP (CMP) (FOR REMOTE [facility] USE) Routine 04/21/2025 11:07 AM EDT [facility] CBC WITH PLATELET AND DIFFERENTIAL Routine 04/21/2025 11:07 AM EDT BI MAMMOGRAM SCREENING TOMOSYNTHESIS BILATERAL Routine 09/05/2024 1:37 PM EST Encounter for screening mammogram for malignant neoplasm of breast LAB COLOGUARD COLON CANCER SCREEN Routine 11/15/2022 9:50 AM EDT from Last 3 Months or Most Recently Relevant to Health Maintenance Results * PET/CT skull base to mid thigh (05/08/2025 10:23 AM EDT) Anatomical Region Laterality Modality Body Computed Tomogra phy 05/08/2025 10:2 3 AM EDT Impressions 05/08/2025 11:27 AM EDT Multiple FDG avid lymph nodes involving the level 2 and level 3 regions of the left neck. Per technologist sheet, this area has been biopsied. Correlation with pathology report is suggested. Mild activity involving the tonsillar region right greater than left. Direct visualization is suggested given the lymph node findings. No abnormal activity is seen within the chest, abdomen or pelvis. Impression dictated by: Thee Davis Jr., D.O. 05/08/2025 11:25 AM Dictation Location: RADIO-PC-22 Transcribed By: [facility] 05/08/25 1125 Dictated By: Thee Davis Jr, DO 05/08/25 1023 Signed By: <Electronically signed by Thee Davis Jr, DO in OV> 05/08/25 1125 Narrative 05/08/2025 11:27 AM EDT [facility] [place] [address] Nuclear Medicine Report Signed Patient: Monica Clay MR#: [id number] 004 : 1955 Acct:[id number] Age/Sex: 70 / F ADM Date: 05/08/25 Loc: Room: Type: [facility] Attending Dr: Kirill Montes De Oca DO Copies to: DO Thee Lim Jr, DO Ordering Provider: Kirill Montes De Oca DO Date of Service: 05/08/25 PET/PET tumor subq tx strat sb-mt: neck mass PET/CT FUSION IMAGING CLINICAL INFORMATION: Left neck mass COMPARISON : Outside soft tissue neck CT 04/22/2025. Outside CT chest 04/30/2025 TECHNIQUE: Noncontrasted CT scan from the base of the skull to the upper thigh followed by PET imaging. Multiplanar PET/CT fusion images. Blood Glucose : 98 mg/dL The F-18 FDG 12.160mCi. FINDINGS: Neck: Multiple FDG avid lymph nodes involving the level 2 and level 3 regions of the left neck, SUV max 9.6. FDG activity is seen involving the tonsillar region right greater than left, SUV max 3.3. Chest:No abnormal activity is noted. Abdomen/pelvis: No abnormal activity is noted. Soft tissue/bones: No abnormal activity is noted. CT findings: No pericardial or pleural effusions. No pneumothorax. No free air or free fluid. PET/PET tumor subq tx strat sb-mt Procedure Note Thee Davis Jr., - 05/08/2025 [facility] Main [place] [address] [place] [address] Nuclear Medicine Report Signed Patient: Giselle Clay#: [id number] 004 : 4Acct:[id number] Age/Sex: 70 / FADM Date: 05/08/25 Loc: Room:Type: [facility] Attending Dr: Kirill Montes De Oca DO Copies to: DO Thee Lim Jr, DO Ordering Provider: Kirill MontesD e Oca DO Date of Service: 05/08/25 PET/PET tumor subq tx strat sb-mt: neck mass PET/CT FUSION IMAGING CLINICAL INFORMATION: Left neck mass COMPARISON : Outside soft tissue neck CT 04/22/2025. Outside CT chest04/30/2025 TECHNIQUE: Noncontrasted CT scan from the base of the skull to the upperthigh followed by PET imaging. Multiplanar PET/CT fusion images. Blood Glucose : 98 mg/dL The F-18 FDG 12.160mCi. FINDINGS: Neck: Multiple FDG avid lymph nodes involving the level 2 and level 3regions of the left neck, SUV max 9.6. FDG activity is seen involving the tonsillar region rightgreater than left, SUV max 3.3. Chest:No abnormal activity is noted. Abdomen/pelvis: No abnormal activity is noted. Soft tissue/bones: No abnormal activity is noted. CT findings: No pericardial or pleural effusions. No pneumothorax. Nofree air or free fluid. PET/PET tumor subq tx strat sb-mt IMPRESSION: Multiple FDG avid lymph nodes involving the level 2 and level 3 regions ofthe left neck. Per technologist sheet, this area has been biopsied. Correlation withpathology report is suggested. Mild activity involving the tonsillar region right greater than left.Direct visualization is suggested given the lymph node findings. No abnormal activity is seen within the chest, abdomen or pelvis. Impression dictated by: Thee Davis Jr., D.O. 05/08/2025 11:25 AM Dictation Location: [place] [address] Transcribed By: [facility] 05/08/25 1125 Dictated By: Thee Davis Jr, DO 05/08/25 1023 Signed By: <Electronically signed by Thee Davis Jr, DO inOV> 05/08/25 1125 Kirill Montes De Oca DO IMG CT PROCEDURES Final Res ult * GLUCOSE POCT GLUCOMETERS (05/08/2025 7:43 AM EDT) Pathologist [facility] GLUCOSE POC GLUCOMETERS 98 mg/dL 05/08/2025 9:46 AM EDT [facility] Comment: Random Glucose Reference Range is dependent on time and content of last meal. Glucose of more than 200 mg/dL in a nonstressed, ambulatory subject supports the diagnosis of Diabetes Mellitus. Blood (Blood) 05/08/2025 7:4 3 AM EDT 05/08/2025 9:45 AM EDT Kirill Montes De Oca DO LAB BLOOD ORDERABLES Final Result [facility] [address] [place] [address], * TISS PATH BX REPORT (05/08/2025 12:00 AM EDT) Pathologist [facility] CASE REPORT [facility] Comment: Surgical Pathology Report Case: [id number] Authorizing Provider: Kirill Montes De Oca DO Collected: 05/08/2025 12:00 AM Ordering Location: [facility] Main Received: 05/08/2025 10:50 PM [facility] Laboratory Pathologist: Madison Camarillo MD Specimen: Lymph Node, Biopsy, lt neck node ([id number]) [facility] FINAL DIAGNOSIS [facility] Comment: This specimen was submitted for flow cytometry. Please see [id number] for the flow cytometry findings. Please refer to [id number] for the final diagnosis for the surgical pathology specimen. at 0956 EDT [facility] GROSS DESCRIPTION [facility] Comment: A. Lymph Node, Biopsy Received in [facility] for lymphoma protocol labeled lymph node, biopsy is a specimen consisting of 5 pieces of fibroadipose/lymphoid tissue measuring 1.7 x 1.4 x 0.2 cm in aggregate. The smallest fragment is submitted in RPMI for flow cytometry and remaining of the tissue is transferred to formalin for permanents in A1. Gross examination performed at [facility], [address] [place], [place] [id number] CLIA # [id number] 05/08/25 11:27 PM [facility] FINAL PERFORMING LAB [facility] Comment: Diagnostic interpretation performed at: [facility], [address] [place] [address], [place] [id number] CLIA# [id number] Junior Systems Administrator: Tommie Bob MD AP DISCLAIMER [facility] Comment: Laboratory Developed Test (LDT) Disclaimer: Performance characteristics of immunohistochemical, immunofluorescent, and chromogenic in-situ hybridization tests have been determined by the performing laboratory within the [facility] Department of Pathology and Laboratory Medicine ([facility], [facility], [facility], [facility], [facility], [facility], or [facility]) in a manner consistent with CLIA requirements. One or more of these tests may not have been cleared or approved by the FDA. The [facility] Department of Pathology and Laboratory Medicine is regulated under CLIA as qualified to perform high-complexity testing. These tests are used for clinical purposes. These should not be regarded as investigational or for research. Positive and negative controls stain appropriately. 05/08/2025 05/08/2025 10: 50 PM EDT Narrative [facility] - 05/15/2025 9:56 AM EDT Specimen Type: TISSUE SPECIMEN Ordering Facility: [facility] Address: [place] [address] Original Ordering Provider: KIRILL MONTES DE OCA us Kirill Montes De Oca DO LAB BLOOD ORDERABLES Final Result [facility] [address] [address] * [facility] FLOW CYTOMETRY FOR LEUKEMIA/LYMPHOMA (FCLL) REFLEX (05/08/2025 12:00 AM EDT) [facility] INTERPRETATION [facility] Comment: The findings demonstrate a subset of B cells that express CD10 and are negative for surface light chain. The findings are suspicious for a B-cell lymphoma, but correlation with the clinical and histopathologic findings is suggested for further classification. at 1619 EDT FLOW CYTOMETRY RESULTS [facility] Comment: Specimen type: Left neck lymph node. Viability: [...] and surface immunoglobulin light chain. MMN/MT 05/11/25 [facility] GROSS DESCRIPTION [facility] Comment: A. Lymph Node, Biopsy RECEIVED 1 PIECE TISSUE MEASURING 0.2 CM BY 0.2 CM BY 0.2 CM [facility] DIAGNOSIS COMMENT This test was developed and its performance characteristics determined by [facility]'s [facility] Medicine [place] ([facility]). It has not been cleared or approved by the FDA. -[facility] is regulated under CLIA as qualified to perform high-complexity testing. This test is used for clinical purposes. It should not be regarded as investigational or for research. [facility] FINAL PERFORMING LAB [facility] Comment: Diagnostic interpretation performed at [facility], [address] [facility] [address] CLIA# [id number] Junior Systems Administrator: Tommie Bob M.D. 05/08/2025 05/09/2025 1:0 5 PM EDT Narrative [facility] - 05/14/2025 4:19 PM EDT Specimen Type: TISSUE SPECIMEN Ordering Facility: [facility] Address: [address] [place], [place] [address] [address] Original Ordering Provider: KIRILL MONTES DE OCA us Kirill Montes De Oca DO [facility] Final Resul t [facility] [address] [address] * CBC auto differential (05/05/2025 5:11 PM EDT) WBC 7.6 3.8 - 11.6 [CFU]/mL 05/05/2025 5:31 PM EDT [facility] UNCORRECTED WHITE BLOOD COUNT 7.6 3.8 - 11.6 10*3/uL 05/05/2025 5:31 PM EDT [facility] RBC 4.48 3.60 - 5.00 10*6/uL 05/05/2025 5:31 PM EDT [facility] HEMOGLOBIN 13.2 11.8 - 15.4 g/dL 05/05/2025 5:31 PM EDT [facility] HEMATOCRIT 39.6 34.0 - 46.4 % 05/05/2025 5:31 PM EDT [facility] MCV 88.4 80 - 100 fL 05/05/2025 5:31 PM EDT [facility] MCH 29.4 24.7 - 34.3 pg 05/05/2025 5:31 PM EDT [facility] MCHC 33.2 32.0 - 35.0 g/dL 05/05/2025 5:31 PM EDT [facility] RED CELL DISTRIBUTION WIDTH, RDW 13.7 11.9 - 15.3 % 05/05/2025 5:31 PM EDT [facility] PLATELET COUNT 288 150 - 450 10*3/uL 05/05/2025 5:31 PM EDT [facility] MEAN PLATELET VOLUME, MPV 8.3 6.3 - 10.7 fL 05/05/2025 5:31 PM EDT [facility] NEUTROPHILS, % 70.0 . % 05/05/2025 5:31 PM EDT [facility] LYMPHOCYTES, % 20.1 . % 05/05/2025 5:31 PM EDT [facility] MONOCYTE/MACROPHA GE, % 7.9 . % 05/05/2025 5:31 PM EDT [facility] EOSINOPHILS, % 0.9 . % 05/05/2025 5:31 PM EDT [facility] BASOPHILS, % 1.1 . % 05/05/2025 5:31 PM EDT [facility] NRBC 0.1 0 - 0.5 /100{WBC} 05/05/2025 5:31 PM EDT [facility] NEUTROPHILS 5.3 1.8 - 7.7 10*3/uL 05/05/2025 5:31 PM EDT [facility] LYMPHOCYTES 1.5 1.00 - 4.8 10*3/uL 05/05/2025 5:31 PM EDT [facility] MONOCYTES 0.6 0.0 - 0.8 10*3/uL 05/05/2025 5:31 PM EDT [facility] EOSINOPHILS 0.1 0.0 - 0.45 10*3/uL 05/05/2025 5:31 PM EDT [facility] BASOPHILS 0.1 0.0 - 0.2 10*3/uL 05/05/2025 5:31 PM EDT [facility] Blood (Blood) 05/05/2025 5:1 1 PM EDT 05/05/2025 5:21 PM EDT Kirill Montes De Oca DO LAB BLOOD ORDERABLES Final Result Performing Organization Address [facility]/State/[facility] Co de Phone Number [facility] [address] [place] [address], [facility] [address] [place] [address] * (ABNORMAL) Basic metabolic panel (05/05/2025 5:11 PM EDT) Glucose 114(H) 70 - 100 mg/dL 05/05/2025 5:55 PM EDT [facility] Comment: Random Glucose Reference Range is dependent on time and content of last meal. Glucose of more than 200 mg/dL in a nonstressed, ambulatory subject supports the diagnosis of Diabetes Mellitus. ADA recommended reference range BUN 15 7 - 25 mg/dL 05/05/2025 5:55 PM EDT [facility] CREATININE 0.68 0.60 - 1.20 mg/dL 05/05/2025 5:55 PM EDT [facility] ESTIMATED GFR >60.0 05/05/2025 5:55 PM EDT [facility] Sodium 140 136 - 145 mmol/L 05/05/2025 5:55 PM EDT [facility] Potassium, Bld 4.0 3.5 - 5.1 mmol/L 05/05/2025 5:55 PM EDT [facility] Chloride 105 98 - 107 mmol/L 05/05/2025 5:55 PM EDT [facility] Carbon Dioxide 27.0 21.0 - 31.0 mmol/L 05/05/2025 5:55 PM EDT [facility] Anion Gap 12.0 6.0 - 15.0 05/05/2025 5:55 PM EDT [facility] Calcium 8.9 8.6 - 10.3 mg/dL 05/05/2025 5:55 PM EDT [facility] Other Topography unknown / Unknown 05/05/2025 5:11 PM EDT 05/05/2025 5:21 PM EDT Kirill Montes De Oca DO LAB BLOOD ORDERABLES Final Result Performing Organization Address City/State/[facility] [place] [address], [place] [address] * ECG 12 lead (05/05/2025 4:38 PM EDT) 05/05/2025 4:38 PM EDT Narrative [facility] - 05/06/2025 8:48 AM EDT [facility] [place] [address] Electrocardiograph Report Signed Patient: Monica Clay MR#: [id number] 004 : 1955 Acct:[id number] Age/Sex: 70 / F ADM Date: 05/05/25 Loc: PS [facility]: [facility]: Kirill Montes De Oca DO [...] previous ECGs available Confirmed by Davis Zapien ([id number]) on 05/06/2025 8:47:44 AM Referred By: Electronically Signed By: Davis Zapien Transcribed By: MUS Signed By Davis Zapien MD 05/06/25 0821 Procedure Note Davis Zapien MD - 05/06/2025 [facility] Main [place] [address] [place] [address] Electrocardiograph Report Signed Patient: Giselle Clay#: [id number] 004 : 1955cct:[id number] Age/Sex: 70 / FADM Date: 05/05/25 Loc: Room:Type: [facility] Attending Dr: Kirill Montes De Oca DO [...] previous ECGs available Confirmed by Davis Zapien ([id number]) on 05/06/2025 8:47:44 AM Referred By: Electronically Signed By: Davis Zapien Transcribed By: MUS Signed By Davis Zapien MD 05/06/25 0847 us Kirill Montes De Oca DO ECG ORDERABLES [place] [address], [place] * CT lung screening low dose (04/30/2025 1:43 PM EDT) Anatomical Region Laterality Modality Lung Computed Tomogra phy 04/30/2025 2:32 PM EDT Impressions 04/30/2025 2:49 PM EDT Examination is stable. Recommend 12-month follow-up by low-dose CT lung scan oral contrast was used for bowel opacification. LUNG-RADS 2: BENIGN APPEARANCE OR BEHAVIOR--CONTINUE ANNUAL CT LUNG SCREENING IN [address] scans at this facility use dose modulation, iterative reconstruction, and/or weight based dosing when appropriate to reduce radiation dose to as low as reasonably achievable. ELECTRONICALLY SIGNED BY: DO Erendira Gaitan 04/30/2025 2:49 PM EDT EXAM: CT CHEST NON-CONTRAST NODULE PROTOCOL/LOW DOSE CT CHEST (LDCT) DATE:04/30/2025 1:31 PM CTDI is 3.026 mGy and DLP is 94.8 mGy-cm. CLINICAL INDICATION:History of smoking. Lung nodule screening recheck lung nodules COMPARISON: April 21, 2024 TECHNIQUE: Low-dose helical CT was acquired without intravenous contrast from the lung apices to bases at 5 mm slices with axial reconstruction at 2.5 mm and 2 mm reconstruction in the coronal and sagittal plane. 5 x 2 mm MIP coronal were also generated. All CT scans at this facility use dose modulation, iterative reconstruction, and/or weight based dosing when appropriate to reduce radiation dose to as low as reasonably achievable. Findings: Mediastinum: The visualized portion of the thyroid gland is unremarkable. No pathologically enlarged mediastinal lymph nodes are seen. Atherosclerotic calcifications are seen in the aortic arch and descending aorta. No aneurysm is visualized. The heart is nonenlarged. There is no pericardial effusion. Lungs/pleura: Centrilobular emphysematous disease is seen. Bronchial wall thickening is also seen. In the anterior right middle lobe there is opacity. This could reflect atelectasis and/or scarring. In the right apical region a 2.7 mm nodule is seen that is not calcified (series 2, image 18) a 2.9 mm pleural-based opacity is also seen in the right upper lobe (series 2, image 23). Posteriorly a 4.1 mm pleural-based opacity is seen (series 2, image 26). A 4 mm pleural-based nodule is seen in the right upper lobe posteriorly (series 2, image 53). In the right lower lobe there are 2 small nodular opacities that measure 2.6 and 2.0 mm (series 2, image 100). Bones/soft tissue: Degenerative changes are seen at multiple levels. Anterior wedging is seen in the upper to mid thoracic spine also Schmorl's nodes are seen. The bony structures are demineralized. Upper abdomen: No acute abnormality is seen. Procedure Note Damaris Javier, - 04/30/2025 EXAM: CT CHEST NON-CONTRAST NODULE PROTOCOL/LOW DOSE CT CHEST (LDCT) DATE:04/30/2025 1:31 PM CTDI is 3.026 mGy and DLP is 94.8 mGy-cm. CLINICAL INDICATION:History of smoking. Lung nodule screening recheck lungnodules COMPARISON: April 21, 2024 TECHNIQUE: Low-dose helical CT was acquired without intravenous contrastfrom the lung apices to bases at 5 mm slices with axial reconstruction at2.5 mm and 2 mm reconstruction in the coronal and sagittal plane. 5 x 2 mmMIP coronal were also generated. All CT scans at this facility use dosemodulation, iterative reconstruction, and/or weight based dosing whenappropriate to reduce radiation dose to as low as reasonably achievable. Findings: Mediastinum: The visualized portion of the thyroid gland is unremarkable.No pathologically enlarged mediastinal lymph nodes are seen.Atherosclerotic calcifications are seen in the aortic arch and descendingaorta. No aneurysm is visualized. The heart is nonenlarged. There is nopericardial effusion. Lungs/pleura: Centrilobular emphysematous disease is seen. Bronchial wallthickening is also seen. In the anterior right middle lobe there isopacity. This could reflect atelectasis and/or scarring. In the right apical region a 2.7 mm nodule is seen that is not calcified(series 2, image 18) a 2.9 mm pleural-based opacity is also seen in theright upper lobe (series 2, image 23). Posteriorly a 4.1 mm pleural-basedopacity is seen (series 2, image 26). A 4 mm pleural-based nodule is seenin the right upper lobe posteriorly (series 2, image 53). In the rightlower lobe there are 2 small nodular opacities that measure 2.6 and 2.0 mm(series 2, image 100). Bones/soft tissue: Degenerative changes are seen at multiple levels.Anterior wedging is seen in the upper to mid thoracic spine also Schmorl'snodes are seen. The bony structures are demineralized. Upper abdomen: No acute abnormality is seen. IMPRESSION: Examination is stable. Recommend 12-month follow-up by low-dose CT lungscan oral contrast was used for bowel opacification. LUNG-RADS 2: BENIGN APPEARANCE OR BEHAVIOR--CONTINUE ANNUAL CT LUNGSCREENING IN [address] scans at this facility use dose modulation, iterativereconstruction, and/or weight based dosing when appropriate to reduceradiation dose to as low as reasonably achievable. ELECTRONICALLY SIGNED BY: Damaris Javier DO us Ava Waters Case STOCK ROLLER IMG CT PROCEDURES Final Resu lt * CT soft tissue neck w IV contrast (04/22/2025 1:53 PM EDT) Anatomical Region Laterality Modality Head, Neck Computed Tomogra phy 04/23/2025 1:31 PM EDT Impressions 04/23/2025 1:45 PM EDT Multiple left neck cystic nodules versus cystic degeneration of lymph nodes. Findings may be secondary to both benign and malignant etiologies. Clinical correlation advised. All CT scans at this facility use dose modulation, iterative reconstruction, and/or weight based dosing when appropriate to reduce radiation dose to as low as reasonably achievable. ELECTRONICALLY SIGNED BY: Kirill Sorto MD Narrative 04/23/2025 1:[address] SOFT TISSUE NECK WITH INTRAVENOUS CONTRAST MEDIUM. HISTORY: LEFT NECK MASS WITH LYMPH NODE ENLARGEMENT. TECHNICAL FACTORS: CT soft tissue neck obtained and formatted as 2.5 mm contiguous axial images. Sagittal and coronal reconstruction obtained during postprocessing. COMPARISON: None FINDINGS: Skull base:Normal Orbits: . Without anomaly. Facial sinuses: Well pneumatized Nasopharynx: Normal Mastoids: Air cells well aerated. Oral cavity: Edentulous. Oropharynx: Without anomaly. Bilateral parapharyngeal spaces and retropharyngeal spaces: Preserved. Salivary glands: Normal Hypopharynx, larynx, supraglottis, infra-glottis: : Without anomaly. Lymph nodes: Mildly enhancing 1 cm thin-walled cyst, posterior to left carotid bundle and left sternocleidomastoid muscle, at level 3B series 2, image 49, series 1000 193, image 58). In addition, several cystic areas, clustered together measuring up to 7 mm are identified lateral to the left carotid artery and posterior to left jugular vein, partially obscuring the left anterior scalene muscle anteriorly (series 2, image 69, series 10,193, image 56). Finding and narrows the left jugular vein anteriorly. Vascular: Vascular structures enhance uniformly. Thyroid: Normal. Lung apices: Without anomaly. Procedure Note Signer, MD Kirill - 04/23/2025 CT SOFT TISSUE NECK WITH INTRAVENOUS CONTRAST MEDIUM. HISTORY: LEFT NECK MASS WITH LYMPH NODE ENLARGEMENT. TECHNICAL FACTORS: CT soft tissue neck obtained and formatted as 2.5 mmcontiguous axial images. Sagittal and coronal reconstruction obtainedduring postprocessing. COMPARISON: None FINDINGS: Skull base:Normal Orbits: . Without anomaly. Facial sinuses: Well pneumatized Nasopharynx: Normal Mastoids: Air cells well aerated. Oral cavity: Edentulous. Oropharynx: Without anomaly. Bilateral parapharyngeal spaces and retropharyngeal spaces: Preserved. Salivary glands: Normal Hypopharynx, larynx, supraglottis, infra-glottis: : Without anomaly. Lymph nodes: Mildly enhancing 1 cm thin-walled cyst, posterior to leftcarotid bundle and left sternocleidomastoid muscle, at level 3B series 2,image 49, series 1000 193, image 58). In addition, several cystic areas,clustered together measuring up to 7 mm are identified lateral to the leftcarotid artery and posterior to left jugular vein, partially obscuring theleft anterior scalene muscle anteriorly (series 2, image 69, [id number],193, image 56). Finding and narrows the left jugular vein anteriorly. Vascular: Vascular structures enhance uniformly. Thyroid: Normal. Lung apices: Without anomaly. IMPRESSION: Multiple left neck cystic nodules versus cystic degeneration of lymphnodes. Findings may be secondary to both benign and malignant etiologies.Clinical correlation advised. All CT scans at this facility use dose modulation, iterativereconstruction, and/or weight based dosing when appropriate to reduceradiation dose to as low as reasonably achievable. ELECTRONICALLY SIGNED BY: Kirill Sorto MD Ava Waters Case STOCK ROLLER IMG CT PROCEDURES Final Resu lt * (ABNORMAL) [facility] CBC WITH PLATELET AND DIFFERENTIAL (04/21/2025 11:07 AM EDT) MLR WBC 5.1 4.8 - 10.8 K/uL MLR MLR RBC 4.58 4.20 - 5.40 M/uL MLR MLR HEMOGLOBIN 13.7 12.0 - 16.0 g/dL MLR MLR HEMATOCRIT 41.7 37.0 - 47.0 % MLR MLR MCV 91.0 79.4 - 94.8 fL MLR MLR MCH 29.9 27.0 - 31.3 pg MLR MLR MCHC 32.9(L) 33.0 - 37.0 % MLR MLR RDW 12.9 11.5 - 14.5 % MLR MLR PLATELET COUNT 323 130 - 400 K/uL MLR MLR NEUTROPHILS 59.0 % MLR MLR LYMPHOCYTES 30.0 % MLR MLR MONOCYTES 8.0 % MLR MLR EOSINOPHILS 0.8 % MLR MLR BASOPHILS 2.0 % MLR MLR ABSOLUTE NEUTROPHILS 3.0 1.4 - 6.5 K/uL MLR MLR ABSOLUTE LYMPHOCYTES 1.5 1.0 - 4.8 K/uL MLR MLR ABSOLUTE MONOCYTES 0.4 0.2 - 0.8 K/uL MLR MLR ABSOLUTE EOSINOPHILS 0.0 0.0 - 0.7 K/uL MLR MLR ABSOLUTE BASOPHILS 0.1 0.0 - 0.2 K/uL MLR 04/21/2025 11:0 7 AM EDT 04/21/2025 1:55 PM EDT Narrative CLINISYNC - 04/21/2025 2:01 PM EDT Ava Waters Case STOCK ROLLER CLINISYNC Final Result CLINISYNC MLR * (ABNORMAL) [facility] CMP (CMP) (FOR REMOTE [facility] USE) (04/21/2025 11:07 AM EDT) MLR SODIUM 142 135 - 144 mEq/L MLR MLR POTASSIUM 4.4 3.4 - 4.9 mEq/L MLR MLR CHLORIDE 105 95 - 107 mEq/L MLR MLR CO2 25 20 - 31 mEq/L MLR MLR ANION GAP 12 9 - 15 mEq/L MLR MLR GLUCOSE 101(H) 70 - 99 mg/dL MLR MLR BUN 13 8 - 23 mg/dL MLR MLR CREATININE 0.71 0.50 - 0.90 mg/dL MLR MLR GFR >90.0 >60 MLR Comment: Pediatric calculator link https://www.kidney.org/professionals/kdoqi/gfr_calculatorped Effective May 29, 2022 These results are not intended for use in patients <18 years of age. eGFR results are calculated without a race factor using the 2020 CKD-EPI equation. Careful clinical correlation is recommended, particularly when comparing to results calculated using previous equations. The CKD-EPI equation is less accurate in patients with extremes of muscle mass, extra-renal metabolism of creatinine, excessive creatinine ingestion, or following therapy that affects renal tubular secretion. MLR CALCIUM 9.5 8.5 - 9.9 mg/dL MLR MLR TOTAL PROTEIN 7.3 6.3 - 8.0 g/dL MLR MLR ALBUMIN 4.5 3.5 - 4.6 g/dL MLR MLR BILIRUBIN TOTAL 0.3 0.2 - 0.7 mg/dL MLR MLR ALKALINE PHOSPHATASE 78 40 - 130 U/L MLR MLR ALT 12 0 - 33 U/L MLR MLR AST 18 0 - 35 U/L MLR MLR GLOBULIN 2.8 2.3 - 3.5 g/dL MLR 04/21/2025 11:0 7 AM EDT 04/21/2025 1:59 PM EDT Narrative CLINISYNC - 04/21/2025 4:54 PM EDT us Ava L Case STOCK ROLLER CLINISYNC Final Result CLINISYNC MLR * (ABNORMAL) ALL LIPID PROFILE (FASTING) (04/21/2025 11:07 AM EDT) MLR CHOLESTEROL 201(H) 0 - 199 mg/dL MLR Comment:ATP III Cholesterol Classification is Borderline High. MLR TRIGLYCERIDES 122 0 - 150 mg/dL MLR Comment:ATP III Triglyceride s Classification is Normal. MLR HDL CHOLESTEROL 52 40 - 59 mg/dL MLR Comment: ATP III HDL Cholesterol Classification is Desirable. Expected Values: Males: >55 = No Risk 35-55 = Moderate Risk <35 = High Risk Females: >65 = No Risk 45-65 = Moderate Risk <45 = High Risk NCEP Guidelines: Third Report December 2000 >59 = negative risk factor for CHD <40 = major risk factor for CHD MLR LDL CHOLESTEROL (CALCULATED) 125 0 - 129 mg/dL MLR Comment: ATP III LDL Classification is Near Optimal. LDL calculated using the Friedewald equation. 04/21/2025 11:0 7 AM EDT 04/21/2025 1:59 PM EDT Narrative CLINISYNC - 04/21/2025 4:54 PM EDT us Ava L Case STOCK ROLLER CLINISYVIOLA Final Result EDDGARFIELD MLR * Bilateral screening mammogram with tomosynthesis (09/05/2024 1:37 PM EST) Anatomical Region Laterality Modality Breast Bilateral Mammography 09/08/2024 12:2 4 PM EST Impressions 09/08/2024 12:32 PM EST Impression: No specific evidence of malignancy seen in either breast. BIRADS 2 - Benign Findings DENSITY: The breasts are heterogeneously dense, which may obscure small masses. FOLLOW-UP: Routine Screening Mammogram ELECTRONICALLY SIGNED BY: Ministerio Desai M.D. Narrative 09/08/2024 12:32 PM EST Examination: BI MAMMOGRAM SCREENING TOMOSYNTHESIS BILATERAL Clinical History: screening Technique: Screening digital mammography study of both breasts was performed with 2-D and 3-D tomosynthesis imaging. Study was compared to the prior exam dated 06/07/2023. Findings: There is no evidence of interval dominant spiculated mass, grouped microcalcifications, or skin thickening which would be suggestive of malignancy. A few benign-appearing calcifications are seen bilaterally. Small benign- appearing nodular density noted posteriorly right, similar to the prior study as well as prior reviewed exam dated 10/25/2021. Axillary lymph node noted on the left with partially visualized axillary lymph node suggested on the right. Procedure Note Ministerio Desai MD - 09/08/2024 Examination: BI MAMMOGRAM SCREENING TOMOSYNTHESIS BILATERAL Clinical History: screening Technique: Screening digital mammography study of both breasts wasperformed with 2-D and 3-D tomosynthesis imaging. Study was compared tothe prior exam dated 06/07/2023. Findings: There is no evidence of interval dominant spiculated mass,grouped microcalcifications, or skin thickening which would be suggestiveof malignancy. A few benign-appearing calcifications are seen bilaterally. Smallbenign- appearing nodular density noted posteriorly right, similar to theprior study as well as prior reviewed exam dated 10/25/2021. Axillary lymphnode noted on the left with partially visualized axillary lymph nodesuggested on the right. IMPRESSION: Impression: No specific evidence of malignancy seen in either breast. BIRADS 2 - Benign Findings DENSITY: The breasts are heterogeneously dense, which may obscure smallmasses. FOLLOW-UP: Routine Screening Mammogram ELECTRONICALLY SIGNED BY: Ministerio Desai M.D. us Ava Dow NP IMG BI PROCEDURES Final Resu lt * Cologuard?? colon cancer screening (11/15/2022 9:50 AM EDT) NONINV COLON CA DNA+OCC BLD SCRN STL-IMP negative NONINV COLON CA DNA+OCC BLD SCRN STL QL Negative Stool us Ava Dow NP LAB MOLECULAR DIAGNOSTICS OR DERABLES Edited Result - Final from Last 3 Months or Most Recently Relevant to Health Maintenance Insurance [facility] MEDICARE ADVANTAGE Member Subscriber Plan / Payer (Ef fective 2021-Present) Name:Monica lCay Relation to Subscriber:Self Name:Monica Clay Payer ID:Not on file Group ID:[id number] Type:Not on file Address: [facility] [id number] [place] [id number] MEDICAID [place] Care Teams Cab Driver Relationship Specialty Start Date End Date Malgorzata Sanchez MD [address] [place], [place] [id number] PCP - General Family Medicine 05/21/23 Ava Dow NP [address] [place], [place] [phone] PCP - Jerome JONES 11/25/24 Ava Dow NP [address] [place], [place] [phone] Nurse Practitioner Family Medicine 05/21/23
--- OUTSIDE RECORDS SUMMARY | 2025-06-11 15:51 | XMS_ITS | Encounter Summary ---
Author Organization [facility] Address [address] [place] [address] Care Team Providers Care Cyber Incident Handler Name Role Phone Malgorzata Sanchez MD Primary Care Provider + [phone] Kailyn Hinojosa RN Unavailable [phone] Jonel Vaughan MD Unavailable [phone] Kimmy AdamsC Unavailable Mariah Lopez PUBLIC HEALTH PHYSICIAN.COMMUNITY HEALTH ADVOCATE Unavailable [phone] Bronwyn Larios PUBLIC HEALTH PHYSICIAN.COMMUNITY HEALTH ADVOCATE Unavailable [phone] Source Comments In the event this information is protected by the Federal Confidentiality of Alcohol and Drug AbusePatient Records regulations: The Federal rules restrict any use of the information to criminally investigate or prosecute any alcohol or drug abuse patient.[facility] Encounter Details Date Type Department Care Team (Late st Contact Info) Description 05/29/2025 Telephone Hematology/Oncology [address] [place], [place] [address] [address] Jonel Vaughan MD [address] [place] [address] [place] [address] Social History Tobacco Use Types Packs/Day [...] risk 2 05/29/2025 Data from: https://www.neighborhoodatlas.medicine.[facility].edu/. Last address used for calculation [address] 05/29/2025 Comments Unknown Sex and Gender Information Value Date Recorded Sex Assigned at Not on file Legal Sex Female 10:47 PM EDT Gender Identity Not on file Sexual Orientation Not on file documented as of this encounter Miscellaneous Notes * Telephone Encounter - Naina Churchill - 06/01/2025 9:03 AM EDT Patient scheduled 06/12 per appointments and attached referral. Naina Churchill * Telephone Encounter - Jonel Vaughan MD - 05/29/2025 12:02 PM EDT Please load [facility] chemo in [place] and schedule it. Thank you. documented in this encounter Plan of Treatment Upcoming Encounters Date Type Department Care Team (Latest Contact Info) Description 06/12/2025 8:30 AM EDT Infusion Center Hematology/Oncology [facility] [place] [address] 2 week follow up with lab port draw chemotx [facility] 06/12/2025 9:00 AM EDT Visit (SP) Office Hematology/Oncology [facility] [place] [address] Jonel Vaughan MD [address] [place] [address] [place] [address] 2 week follow up with lab port draw chemotx [facility] 06/12/2025 9:30 AM EDT Infusion Center Hematology/Oncology [address] [facility] [place] [address] Humberto, Chair [address] [facility] [place] [address] 2 week follow up with lab port draw chemotx [facility] 06/12/2025 11:15 AM EDT Education Nutrition Therapy [address] [place] [address] Aimee Javier, BELINDA [address] [facility] [place] [address] Diffuse large b-cell lymphoma, lymph nodes of head, face, and neck ( documented as of this encounter Visit Diagnoses Diagnosis Diffuse large b-cell lymphoma, lymph nodes of head, face, and neck (HCC)- Primary documented in this encounter Care Teams Cyber Incident Handler Relationship Specialty Start Date End Date Malgorzata Sanchez MD [address] [place] [phone] PCP - General Family Medicine 05/21/25 Kailyn Hinojosa, RN [address] [facility] [place] [address] Specialty Trailer Tank Truck Driver Hematology/Oncology 06/01/25 Jonel Vaughan MD [address] [place] [address] [place] [address] Physician Hematology/Oncology 06/01/25 Kimmy Adams, PA-C [address] [place] [address] [place] [address] Physician Ceramics Test Engineer Hematology/Oncology 06/01/25 Mariah Lopez APRN.[employer] HEALTH AD[employer] [address] [place] [address] [place] [address] Nurse Practitioner Hematology/Oncology 06/01/25 Bronwyn Larios APRN.[facility] [address] [place] [address] [place] [address] Nurse Practitioner Hematology/Oncology 06/01/25 documented as of this encounter
--- OUTSIDE RECORDS SUMMARY | 2025-06-11 15:51 | XMS_ITS | Encounter Summary ---
Author Organization [facility] Address [address] [place] [address] Care Team Providers Care Mower Mechanic Name Role Phone Malgorzata Sanchez MD Primary Care Provider + [phone] Kailyn Hinojosa RN Unavailable [phone] Jonel Vaughan MD Unavailable [phone] Kimmy AdamsC Unavailable [phone] Mariah Lopez PEACE OFFICER.[employer] Unavailable [phone] Bronwyn Larios PEACE OFFICER.[employer] Unavailable [phone] Source Comments In the event this information is protected by the Federal Confidentiality of Alcohol and Drug AbusePatient Records regulations: The Federal rules restrict any use of the information to criminally investigate or prosecute any alcohol or drug abuse patient.[facility] Reason for Visit * Reason Comments Care Coordination echo Encounter Details Date Type Department Care Team (Late st Contact Info) Description 06/05/2025 Telephone Hematology/Oncology [facility] [place] [address] Kailyn Hinojosa, RN [address] [place] [address] [place] [address] Care Coordination (echo) Social History Tobacco Use Types Packs/Day Years [...] is lower risk 2 05/29/2025 Data from: https://www.neighborhoodatlas.medicine.[facility].edu/. Last address used for calculation [address] 05/29/2025 Comments Unknown Sex and Gender Information Value Date Recorded Sex Assigned at Not on file Legal Sex Female 10:47 PM EDT Gender Identity Not on file Sexual Orientation Not on file documented as of this encounter Miscellaneous Notes * Telephone Encounter - Naina Churchill - 06/08/2025 10:12 AM EDT 07/09/25 looks like patient is scheduled for. Closing encounter as Ana Cristina created an encounter today regarding questions about the ECHO. Thanks! Naina Churchill * Telephone Encounter - Kailyn Hinojosa RN - 06/05/2025 9:44 AM EDT Pt calls stating she still hasn't heard about an appointment for her echo. Please schedule Thanks Kailyn Hinojosa, RN documented in this encounter Plan of Treatment Upcoming Encounters Date Type Department Care Team (Latest Contact Info) Description 06/12/2025 8:30 AM EDT Infusion Center Hematology/Oncology [facility] [place] [address] 2 week follow up with lab port draw chemotx [facility] 06/12/2025 9:00 AM EDT Visit (SP) Office Hematology/[place] [address] Jonel Vaughan MD [address] [place] [address] 2 week follow up with lab port draw chemotx [facility] 06/12/2025 9:30 AM EDT Infusion Center Hematology/Oncology [address] [place] [address] Humberto, Chair [address] [place] [address] 2 week follow up with lab port draw chemotx [facility] 06/12/2025 11:15 AM EDT Education Nutrition Therapy [address] [place] [address] Aimee Javier, RD [address] [place] [address] Diffuse large b-cell lymphoma, lymph nodes of head, face, and neck ( documented as of this encounter Visit Diagnoses Not on filedocumented in this encounter Care Teams Mower Mechanic Relationship Specialty Start Date End Date Malgorzata Sanchez MD [address] [place] [phone] PCP - General Family Medicine 05/21/25 Kailyn Hinojosa, RN [address] [place] [address] Specialty Yard Motor Operator Hematology/Oncology 06/01/25 Jonel Vaughan MD [address] [place] [address] [place] [address] Physician Hematology/Oncology 06/01/25 Kimmy Adams PAGilmerC [address] [place] [address] [place] [address] Physician Operations Advisor Hematology/Oncology 06/01/25 Mariah Lopez APRN.[employer] [address] [place] [address] [place] [address] Nurse Practitioner Hematology/Oncology 06/01/25 Bronwyn Larios APRN.[facility] [address] [place] [address] [place] [address] Nurse Practitioner Hematology/Oncology 06/01/25 documented as of this encounter
--- OUTSIDE RECORDS SUMMARY | 2025-06-11 15:51 | XMS_ITS | Encounter Summary ---
Author Organization [facility] Address [address] [facility] [address] Care Team Providers Care Strategic Accounts Manager Name Role Phone Malgorzata Sanchez MD Primary Care Provider [phone] CaseAva DIESEL AUTOMOTIVE TECHNICIAN Unavailable [phone] Malgorzata Sanchez MD Unavailable [phone] CaseAva DIESEL AUTOMOTIVE TECHNICIAN Unavailable [phone] Encounter Details Date Type Department Care Team (Late st Contact Info) Description 05/25/2023 Abstract [facility] [address] [facility] [address] [place] [phone] Shabbir Weeks, PA [address] [facility] [address] [place] [address] Social History Tobacco Use Types Packs/Day Years [...] week 05/21/2023 How often do you attend denominational or latter day serv ices? Never 05/21/2023 Do you belong to any clubs o r organizations such as denominational groups, unions, fraternal or athletic groups, or [...] housing, medical care, and heating? Hard 05/21/2023 [facility] - Occupational Stress [...] place to sleep or slept in a long term (including now)? No 05/21/2023 Comments Unknown Sex and Gender Information Value Date Recorded Sex Assigned at Female 05/21/2023 6:07 PM EDT Legal Sex Female 4:08 PM EDT Gender Identity Female 05/21/2023 6:07 PM EDT Sexual Orientation Not on file COVID-19 Exposure Response Date Recorded In the last 10 days, have yo u been in contact with someone who was confirmed or suspected to have Coronavirus/COVID-19? No / Unsure 05/21/2023 5:40 PM EDT documented as of this encounter Plan of Treatment Upcoming Encounters Date Type Department Care Team (Late st Contact Info) Description 06/22/2025 1:45 PM EDT Office Visit [facility] [address] [place] [phone] Kirill Montes De Oca DO [address] [place] [address] documented as of this encounter Visit Diagnoses Not on filedocumented in this encounter Care Teams Strategic Accounts Manager Relationship Specialty Start Date End Date Malgorzata Sanchez MD [address] [place] [address] PCP - General Family Medicine 05/21/23 Malgorzata Sanchez MD [address] [place] [address] PCP - Jerome JONES 08/27/23 11/24/24 CaseAva NP [address] [place] [address] PCP - Jerome JONES 11/25/24 Ava Dow NP [address] [place] [address] Nurse Practitioner Family Medicine 05/21/23 documented as of this encounter
--- OUTSIDE RECORDS SUMMARY | 2025-06-11 15:51 | XMS_ITS | Encounter Summary ---
Author Organization [facility] Address [address] [place] [address] Care Team Providers Care Enterprise Software Engineer Name Role Phone Malgorzata Sanchez MD Primary Care Provider + [phone] Kailyn Hinjoosa RN Unavailable [phone] Jonel Vaughan MD Unavailable + [phone] Kimmy AdamsC Unavailable [phone] Mariah Lopez WINDOW SHADE CUTTER.ALMOND PASTE MIXER Unavailable [phone] Bronwyn Larios WINDOW SHADE CUTTER.ALMOND PASTE MIXER Unavailable [phone] Source Comments In the event this information is protected by the Federal Confidentiality of Alcohol and Drug AbusePatient Records regulations: The Federal rules restrict any use of the information to criminally investigate or prosecute any alcohol or drug abuse patient.[facility] Reason for Visit * Reason Comments Care Coordination question Encounter Details Date Type Department Care Team (Late st Contact Info) Description 06/03/2025 Telephone Hematology/Oncology [place] [place] [address] Kailyn Hinojosa, RN [address] [place] [address] [place] [address] Care Coordination (question) Social History Tobacco Use Types Packs/Day Years [...] is lower risk 2 05/29/2025 Data from: https://www.neighborhoodatlas.medicine.[facility].edu/. Last address used for calculation [address] 05/29/2025 Comments Unknown Sex and Gender Information Value Date Recorded Sex Assigned at Not on file Legal Sex Female 10:47 PM EDT Gender Identity Not on file Sexual Orientation Not on file documented as of this encounter Miscellaneous Notes * Telephone Encounter - Kailyn Hinojosa RN - 06/03/2025 1:04 PM EDT Call received from pt and she's asking if she can use her denture adhesive prior to her port placement tomorrow? Encouraged pt to call the surgeon's office to ask them this question. Verbalized understanding Kailyn Hinojosa RN documented in this encounter Plan of Treatment Upcoming Encounters Date Type Department Care Team (Latest Contact Info) Description 06/12/2025 8:30 AM EDT [facility] Center Hematology/[place] [address] 2 week follow up with lab port draw chemotx [facility] 06/12/2025 9:00 AM EDT Visit (SP) Office Hematology/[place] [address] Jonel Vaughan MD [facility] [place] [address] 2 week follow up with lab port draw chemotx [facility] 06/12/2025 9:30 AM EDT Infusion Center Hematology/Oncology [address] [facility] [place] [address] Humberto, Chair [address] [place] [address] 2 week follow up with lab port draw chemotx [facility] 06/12/2025 11:15 AM EDT Education Nutrition Therapy [address] [place] [address] Aimee Javier, BELINDA [address] [place] [address] Diffuse large b-cell lymphoma, lymph nodes of head, face, and neck ( documented as of this encounter Visit Diagnoses Not on filedocumented in this encounter Care Teams Enterprise Software Engineer Relationship Specialty Start Date End Date Malgorzata Sanchez MD [address] [place] [phone] PCP - General Family Medicine 05/21/25 Kailyn Hinojosa RN [address] [facility] [place] [address] Specialty Special Education Preschool Teacher Hematology/Oncology 06/01/25 Jonel Vaughan MD [address] [place] [address] [place] [address] Physician Hematology/Oncology 06/01/25 Kimmy Adams PA-C [address] [place] [address] [place] [address] Physician Coil Tier Hematology/Oncology 06/01/25 Mariah Lopez APRN.ALMOND PASTE MIXER [address] [facility] [place] [address] Nurse Practitioner Hematology/Oncology 06/01/25 Bronwyn Larios APRN.ALMOND PASTE MIXER [address] [place] [address] [place] [address] Nurse Practitioner Hematology/Oncology 06/01/25 documented as of this encounter
--- OUTSIDE RECORDS SUMMARY | 2025-06-11 15:51 | XMS_ITS | Encounter Summary ---
Author Organization [facility] Address [address] [facility] [address] [place] [address] Care Team Providers Care Freight Breaker Name Role Phone Malgorzata Sanchez MD Primary Care Provider Ava Dow NP Unavailable Malgorzata Sanchez MD Unavailable Ava Dow NP Unavailable Encounter Details Date Type Department Care Team (Late st Contact Info) Description 12/17/2023 Orders Only [facility] [address] [place] [address] Ava Dow NP [address] [place] [address] Social History Tobacco Use Types [...] week 05/21/2023 How often do you attend zoroastrian or scientology serv ices? Never 05/21/2023 Do you belong to any clubs o r organizations such as zoroastrian groups, unions, fraternal or athletic groups, or [...] Recorded Patient Health Questionnaire-2 Score 2 11/15/2023 [facility] - Occupational Stress [...] place to sleep or slept in a fdc (including now)? No 05/21/2023 Comments Unknown Sex [...] EDT Office Visit [facility] [place] [facility] [address] [place] [address] Kirill Montes De Oca, DO [address] [place] [address] documented as of this encounter Procedures Procedure Name Priority Date/Time Associated Diagnosis Comments LAB COLOGUARD COLON CANCER SCREEN Routine 11/15/2022 9:50 AM EDT documented in this encounter Results * Cologuard?? colon cancer screening (11/15/2022 9:50 AM EDT) NONINV COLON CA DNA+OCC BLD SCRN STL-IMP negative NONINV COLON CA DNA+OCC BLD SCRN STL QL Negative Stool Ava Waters Case TRAIN CLERK LAB MOLECULAR DIAGNOSTICS OR DERABLES Edited Result - Final documented in this encounter Visit Diagnoses Not on filedocumented in this encounter Care Teams Freight Breaker Relationship Specialty Start Date End Date Malgorzata Sanchez MD [address] [place], [place] [phone] PCP - General Family Medicine 05/21/23 Malgorzata Sanchez MD [address] [place] [address] PCP - Jerome JONES 08/27/23 11/24/24 Ava Dow NP [address] [place] [address] PCP - Jerome JONES 11/25/24 Ava Dow NP [address] [place], [place] [phone] Nurse Practitioner Family Medicine 05/21/23 documented as of this encounter
--- OUTSIDE RECORDS SUMMARY | 2025-06-11 15:52 | XMS_ITS | Encounter Summary ---
Author Organization [facility] Address [address] [place] [address] Care Team Providers Care Business Specialist Name Role Phone Malgorzata Sanchez MD Primary Care Provider + [phone] Source Comments In the event this information is protected by the Federal Confidentiality of Alcohol and Drug AbusePatient Records regulations: The Federal rules restrict any use of the information to criminally investigate or prosecute any alcohol or drug abuse patient.[facility] Encounter Details Date Type Department Care Team (Latest Contact Info) Description 05/30/2025 Travel Social History Tobacco Use Types Packs/Day [...] is lower risk 2 05/29/2025 Data from: https://www.neighborhoodatlas.medicine.[facility].edu/. Last address used for calculation [address] [...] 8:30 AM EDT Infusion Center Hematology/Oncology [address] [facility] [place] [address] 2 week follow up with lab port draw chemotx [facility] 06/12/2025 9:00 AM EDT Visit (SP) Office Hematology/Oncology [address] [facility] [place] [address] Jonel Vaughan MD [address] [facility] [place] [address] 2 week follow up with lab port draw chemotx [facility] 06/12/2025 9:30 AM EDT Infusion Center Hematology/Oncology [address] [facility] [place] [place] [address] Chaffee, Chair [address] [facility] [place] [place] [address] 2 week follow up with lab port draw chemotx [facility] 06/12/2025 11:15 AM EDT Education Nutrition Therapy [address] [facility] [place] [address] Aimee Javier, RD [address] [place] [address] Diffuse large b-cell lymphoma, lymph nodes of head, face, and neck ( documented as of this encounter Visit Diagnoses Not on filedocumented in this encounter Care Teams Business Specialist Relationship Specialty Start Date End Date Malgorzata Sanchez MD [address] [place] [address] PCP - General Family Medicine 05/21/25 documented as of this encounter
--- OUTSIDE RECORDS SUMMARY | 2025-06-11 15:52 | XMS_ITS | Encounter Summary ---
Author Organization [facility] Address [address] [place] [address] Care Team Providers Care It Lead Name Role Phone Malgorzata Sanchez MD Primary Care Provider + [phone] Kailyn Hinojosa RN Unavailable [phone] Jonel Vaughan MD Unavailable [phone] Kimmy Adams-C Unavailable [phone] Mariah Lopez MANOMETER TECHNICIAN.BELLY DUMP DRIVER Unavailable [phone] Bronwyn Larios MANOMETER TECHNICIAN.BELLY DUMP DRIVER Unavailable [phone] Source Comments In the event this information is protected by the Federal Confidentiality of Alcohol and Drug AbusePatient Records regulations: The Federal rules restrict any use of the information to criminally investigate or prosecute any alcohol or drug abuse patient.[facility] Reason for Referral * Specialty Diagnoses / Procedures Referred By Contvaleriy t Referred To Contact Diagnoses Diffuse large b-cell lymphoma, lymph nodes of head, face, and neck (HCC) Jonel Vaughan MD [address] [place] [place] [address] [place] [address] Phone: tel: fax: Referral ID Status Reason Start Date Expiration Date Visits Re quested Visits Authorized Reason for Visit * Reason Comments Care Coordination Treatment prep Encounter Details Date Type Department Care Team (Late st Contact Info) Description 06/01/2025 Telephone Hematology/Oncology [address] [place] [address] Kailyn Hinojosa, RN [address] [place] [address] Care Coordination (Treatment prep) Social History Tobacco Use Types Packs/Day Years [...] is lower risk 2 05/29/2025 Data from: https://www.neighborhoodatlas.medicine.[facility].edu/. Last address used for calculation [address] 05/29/2025 Comments Unknown Sex and Gender Information Value Date Recorded Sex Assigned at Not on file Legal Sex Female 10:47 PM EDT Gender Identity Not on file Sexual Orientation Not on file documented as of this encounter Miscellaneous Notes * Telephone Encounter - Denisa Glass - 06/01/2025 12:15 PM EDT Monica is scheduled for a phone visit with Tiffany Javier the Managed Services Sales Consultant next Sunday during her first treament. Denisa b PSS * Telephone Encounter - Kailyn Hinojosa RN - 06/01/2025 9:13 AM EDT Please sign pending orders for treatment. PSS: pt will need scheduled with dairy husbandry worker. Thanks Kailyn Hinojosa, RN documented in this encounter Plan of Treatment Upcoming Encounters Date Type Department Care Team (Latest Contact Info) Description 06/12/2025 8:30 AM EDT Infusion Center Hematology/Oncology [address] [facility] [address] [place], [place] [id number] 2 week follow up with lab port draw chemotx [facility] 06/12/2025 9:00 AM EDT Visit (SP) Office Hematology/Oncology [address] [place] [address] Jonel Vaughan MD [address] [place] [address] 2 week follow up with lab port draw chemotx [facility] 06/12/2025 9:30 AM EDT Infusion Center Hematology/Oncology [address] [place] [address] Humberto, Chair [address] [place] [address] 2 week follow up with lab port draw chemotx [facility] 06/12/2025 11:15 AM EDT Education Nutrition Therapy [address] [place] [address] Aimee Javier, RD [address] [place] [address] Diffuse large b-cell lymphoma, lymph nodes of head, face, and neck ( Scheduled Referrals Name Type Priority Associated Diagnoses Orde r Schedule CONSULT TO ONCOLOGY NUTRITION Referral Routine Diffuse large b-cell lymphoma, lymph nodes of head, face, and neck (HCC) 1 Occurrences starting 06/01/2025 documented as of this encounter Visit Diagnoses Diagnosis Diffuse large b-cell lymphoma, lymph nodes of head, face, and neck (HCC)- Primary documented in this encounter Care Teams It Lead Relationship Specialty Start Date End Date Malgorzata Sanchez MD [address] [place] [address] PCP - General Family Medicine 05/21/25 Kailyn Hinojosa RN [address] [place] [address] Specialty Analysis Analyst Hematology/Oncology 06/01/25 Jonel Vaughan MD [address] [facility] [place] [address] Physician Hematology/Oncology 06/01/25 Kimmy Adams PAHouston [address] [facility] [place] [address] Physician Fire Adjuster Hematology/Oncology 06/01/25 Mariah Lopez APRN.BELLY DUMP DRIVER [facility] [place] [address] Nurse Practitioner Hematology/Oncology 06/01/25 Bronwyn Larios APRN.BELLY DUMP DRIVER [address] [facility] [place] [address] Nurse Practitioner Hematology/Oncology 06/01/25 documented as of this encounter
--- NOTE | 2025-06-11 16:00 | CA_ITS ---
Patient Name: MINA VELASQUEZ MR#: [id number] : 1955 Exam Date: 06/11/2025 Ordering Doctor: PAUL SINGH ECHOCARDIOGRAM REPORT PROCEDURE: CA ECHO DOPPLER COMPLETE INDICATIONS: Cardiotoxicity, diffuse large 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 COMPARISON: None. DESCRIPTION: COMPLETE ECHOCARDIOGRAM Real-time transthoracic echocardiography with 2D, M-mode, spectral and color flow Doppler performed. QUALITY: Technical quality was good. LEFT VENTRICLE: Normal chamber size. Proximal septal hypertrophy (sigmoid septum). LV EF: Global left ventricular systolic function is low; visually estimated ejection fraction is 55 to 60%. Calculated left ventricular ejection fraction is 59%. No significant wall motion abnormalities. DIASTOLIC: Normal diastolic function. ATRIAL SEPTUM: Visually appears intact. LEFT ATRIUM: Normal chamber size. RIGHT ATRIUM: Normal chamber size. RIGHT VENTRICLE: Normal chamber size. Normal right ventricular systolic function. TRICUSPID VALVE: Normal mobility and thickness. No stenosis with trivial regurgitation. No evidence of pulmonary hypertension. RVSP 26 mmHg MITRAL VALVE: Normal mobility and thickness. No evidence of mitral valve stenosis. There is no mitral annular calcification. No mitral regurgitation. AORTIC VALVE: Normal trileaflet appearance. No visible sclerosis. Normal leaflet mobility. No evidence of aortic valve stenosis. No aortic regurgitation. AORTIC ROOT: Normal diameter and appearance. Ascending aorta is normal in size. PULMONIC VALVE: Normal thickness and mobility. No stenosis. No regurgitation. PERICARDIUM: No evidence of pericardial effusion. IVC: Collapses with inspiration. STRAIN: Global peak strain (4CH) is -20.8%; (2CH) is -13.8%; (APLAX) is -18.8% and GLS (average) is -17.8%. No prior studies to compare CONCLUSION: 1. Global left ventricular systolic function is normal; visually estimated ejection fraction is 55 to 60% 2. Normal right ventricular size and systolic function 3. Normal diastolic function 4. No significant valvular abnormalities 5. Global peak strain (4CH) is -20.8%; (2CH) is -13.8%; (APLAX) is -18.8% and GLS (average) is -17.8%. No prior studies to compare Adult Echocardiography Procedure Report Left Ventricle LVEDD (3.7 - 5.6 cm): 4.21 cm LVESD (2.2 - 4.0 cm): 2.43 cm LVIVS thickness (0.6 - 1.2 cm): 1.54 cm LVPW thickness (0.5 - 1.0 cm): 0.87 cm e': 0.07 m/s E - e': 7.26 LVOT Max Gradient: 4.45 mm[Hg] LVOT Area (cm2): 1.05 m/s Peak Velocity (LVOT): 1.05 m/s Mean Velocity (LVOT): 0.65 m/s LVOT Diameter 2.06 cm Left Atrium LA Volume Index (2D A2C): 29.44 ml/m2 Left Atrium Systolic Dimension: 4.20 cm Mitral Valve MV E to A Ratio: 0.61 Mitral Valve A-Wave Peak Velocity: 0.89 m/s Mitral Valve E-Wave Peak Velocity: 0.54 m/s Right Ventricle Aorta AO Root Diam: 3.43 cm Ascending Ao Diam: 3.22 cm Aortic Valve AoV Area (Peak Hayder): 2.60 cm2, 2.60 cm2 AoV Area (VTI): 2.44 cm2, 2.44 cm2 Peak Velocity(Antegrade Flow): 1.36 m/s Peak Gradient(Antegrade Flow): 7.39 mm[Hg] Mean Velocity(Antegrade Flow): 0.91 m/s Mean Gradient(Antegrade Flow): 3.80 mm[Hg] Velocity Time Integral: 32.55 cm Tricuspid Valve Peak Velocity (Regurgitant Flow): 2.40 m/s Pulmonic Valve Peak Velocity: 0.89 m/s Peak Gradient: 3.16 mm[Hg] Right Atrium Right Atrium Systolic Pressure: 38.81 ml, 38.81 ml Dictated by: Laura Chin M.D. on 06/11/2025 at 17:32 Approved by: Laura Chin M.D. on 06/11/2025 at 17:37
== END 2025-06-11 15:45 | disposition home or self-care (01) ==
LOC: CARD 15:49
PROVIDERS: PCP Nurse Practitioner Family; Visit Provider Student in an Organized Health Care Education/Training Program
DX: Z01.818 Encounter for other preprocedural examination (principal); C83.31 Diffuse large B-cell lymphoma, lymph nodes of head, face, and neck
CPT/HCPCS: 93306; 93356

== ENCOUNTER 2025-08-07 12:37 | Outpatient (OUT) | payer MEDICARE, MEDICAID, SELFPAY ==
--- NOTE | 2025-08-07 13:00 | CA_ITS ---
Patient Name: MINA VELASQUEZ MR#: [id number] : 1955 Exam Date: 08/07/2025 Ordering Doctor: PAUL SINGH ECHOCARDIOGRAM REPORT PROCEDURE: CA ECHO DOPPLER COMPLETE INDICATIONS: Cardiotoxicity, diffuse large b-cell lymphoma (lymph nodes of head, face and neck) COMPARISON: None. DESCRIPTION: COMPLETE ECHOCARDIOGRAM Real-time transthoracic echocardiography with 2D, M-mode, spectral and color flow Doppler performed. QUALITY: Technical quality was good. LEFT VENTRICLE: Normal chamber size. Proximal septal hypertrophy (sigmoid septum). Normal global systolic function. Strain imaging: Global peak strain (4CH) is -17%, (2CH) is -13.1%, (APLAX) is -19%, GLS Avg is -16.3%, which is changed from previous echo. Estimated ejection fraction is 60%. LV EF: Normal left ventricular ejection fraction, (>55%). DIASTOLIC: Diastolic function is indeterminate. ATRIAL SEPTUM: Visually appears intact. LEFT ATRIUM: Mild chamber dilatation. RIGHT ATRIUM: Normal chamber size. RIGHT VENTRICLE: Normal chamber size. Normal right ventricular systolic function. TRICUSPID VALVE: Normal mobility and thickness. No stenosis with trivial regurgitation. No evidence of pulmonary hypertension. RVSP 27 mmHg MITRAL VALVE: Normal mobility and thickness. No evidence of mitral valve stenosis. There is no mitral annular calcification. Mild mitral regurgitation. AORTIC VALVE: Normal trileaflet appearance. No visible sclerosis. Normal leaflet mobility. No evidence of aortic valve stenosis. No aortic regurgitation. AORTIC ROOT: Normal diameter and appearance, measuring 3.5 cm. Ascending aorta is normal in size, measuring 3.2 cm. PULMONIC VALVE: Normal thickness and mobility. No stenosis. No regurgitation. PERICARDIUM: No evidence of pericardial effusion. IVC: Collapses with inspirations. PLEURA: CONCLUSION: 1. Normal left ventricular size and systolic function. Estimated LVEF is 60%. 2. Normal right ventricular size and systolic function. 3. Mild left atrial dilatation. 4. Mild mitral regurgitation. 5. Normal right-sided pressures. 6. No pericardial effusion. Adult Echocardiography Procedure Report Left Ventricle LVEDD (3.7 - 5.6 cm): 3.64 cm LVESD (2.2 - 4.0 cm): 2.24 cm LVIVS thickness (0.6 - 1.2 cm): 1.88 cm LVPW thickness (0.5 - 1.0 cm): 1.07 cm e': 0.08 m/s E - e': 4.37 LVOT Max Gradient: 3.33 mm[Hg] LVOT Area (cm2): 0.91 m/s Peak Velocity (LVOT): 0.91 m/s Mean Velocity (LVOT): 0.69 m/s LVOT Diameter 2.01 cm Left Atrium LA Volume Index (2D A2C): 29.12 ml/m2 Left Atrium Systolic Dimension: 3.90 cm Mitral Valve MV E to A Ratio: 0.48 Mitral Valve A-Wave Peak Velocity: 0.77 m/s Mitral Valve E-Wave Peak Velocity: 0.37 m/s Right Ventricle Aorta AO Root Diam: 3.53 cm Ascending Ao Diam: 3.22 cm Aortic Valve AoV Area (Peak Hayder): 2.06 cm2, 2.06 cm2 AoV Area (VTI): 2.00 cm2, 2.00 cm2 Peak Velocity(Antegrade Flow): 1.40 m/s Peak Gradient(Antegrade Flow): 7.86 mm[Hg] Mean Velocity(Antegrade Flow): 0.99 m/s Mean Gradient(Antegrade Flow): 4.45 mm[Hg] Velocity Time Integral: 33.06 cm Tricuspid Valve Peak Velocity (Regurgitant Flow): 2.03 m/s, 2.43 m/s Pulmonic Valve Mean Gradient: 1.58 mm[Hg] Mean Velocity: 0.59 m/s Peak Velocity: 0.86 m/s Peak Gradient: 2.95 mm[Hg] Right Atrium Right Atrium Systolic Pressure: 23.49 ml, 23.49 ml Dictated by: Davsi Samaniego M.D. on 08/07/2025 at 17:08 Approved by: Davis Samaniego M.D. on 08/07/2025 at 17:12
== END 2025-08-07 12:38 | disposition home or self-care (01) ==
LOC: CARD 12:37
PROVIDERS: PCP Nurse Practitioner Family; Visit Provider Student in an Organized Health Care Education/Training Program
DX: Z01.818 Encounter for other preprocedural examination (principal); C83.31 Diffuse large B-cell lymphoma, lymph nodes of head, face, and neck
CPT/HCPCS: 93306; 93356